=== PATIENT | male | born 1950 | race Caucasian/White ===

== ENCOUNTER 2021-02-10 10:33 | Outpatient (REF) | payer MEDICARE, SELFPAY ==
[2021-02-10 10:36] LABS: MANUAL DIFF FLAG NO
[2021-02-10 10:44] LABS: Basophils Absolute Auto 0.1 X10*3/uL (0.0-0.2); Basophils Percent Auto 0.8 % (0-2); Eosinophils Absolute Auto 0.2 X10*3/uL (0.0-0.4); Eosinophils Percent Auto 2.9 % (0-4); Hematocrit 46.3 % (42.0-52.0); Hemoglobin 16.1 g/dl (14.0-18.0); Imm Gran Abs Auto 0.04 X10*3/uL (0.00-0.03); Imm Gran Pct Auto 0.7 % (0.0-0.4); Lymphocytes Absolute Auto 1.6 X10*3/uL (1.2-4.9); Lymphocytes Percent Auto 27.3 % (20-40); Mean Corpuscular HGB Conc 34.8 g/dl (31.0-36.0); Mean Corpuscular Hemoglobin 32.1 pg (27.0-33.0); Mean Corpuscular Volume 92.4 fL (80.0-98.0); Mean Platelet Volume 10.6 fL (9.4-12.4); Monocytes Absolute Auto 0.7 X10*3/uL (0.1-1.2); Monocytes Percent Auto 11.6 % (2-11); Neutrophils Absolute Auto 3.4 x10*3/uL (2.0-8.3); Neutrophils Percent Auto 56.7 % (45-73); Platelet Count 193 X10*3/uL (160-400); Red Blood Count 5.01 X10*6/uL (4.60-5.80); Red Cell Distribution Width 12.9 % (11.0-16.0); White Blood Count 5.9 X10*3/uL (4.8-10.8)
[2021-02-10 10:55] LABS: Appearance Urine CLEAR; Color Urine YELLOW; Glucose Urine UA NEG (NEG); Leukocyte Esterase Urine NEG (NEG); Nitrite Urine NEG (NEG); Specific Gravity - Urine >= 1.030 (1.005-1.025); Urine Blood NEG (NEG); Urine Ketones NEG (NEG); Urine Protein NEG (NEG-TRACE)
[2021-02-10 10:59] LABS: Alanine Aminotransferase 27 U/L (0-40); Albumin Level 4.4 g/dL (3.5-5.0); Alkaline Phosphatase 66 U/L (39-117); Anion Gap 12 (12-20); Aspartate Amino Transferase 21 U/L (5-37); Bilirubin Total 1.7 mg/dL (0.0-1.0); Blood Urea Nitrogen 26 mg/dL (9-16); Calcium 9.5 mg/dL (8.4-10.2); Carbon Dioxide 27 mmol/L (22-29); Chloride 103 mmol/L (96-108); Cholesterol 203 mg/dL; Estimated Glomerular Filt Rate > 60; Glucose Fasting 101 mg/dL (60-99); HDL Cholesterol 60 mg/dL; LDL Cholesterol Calculated 126 mg/dl; Potassium 4.4 mmol/L (3.3-5.1); Sodium 138 mmol/L (135-145); Total Protein 6.7 g/dL (6.5-8.0); Triglycerides 87 mg/dL
[2021-02-10 11:08] LABS: Estimated Average Glucose 105 mg/dL; Hemoglobin A1c % 5.3 %
[2021-02-10 11:16] LABS: Creatinine Urine 232.14 mg/dL; Microalbum/Creatinine Ratio Ur 3.8 ug/mg cr
[2021-02-10 13:04] LABS: Reflex LDLD? No
== END 2021-02-10 10:34 | disposition home or self-care (01) ==
LOC: HO.LNP 10:33
PROVIDERS: PCP Internal Medicine; Visit Provider Internal Medicine
DX: Z12.5 Encounter for screening for malignant neoplasm of prostate (principal); I10 Essential (primary) hypertension; R73.03 Prediabetes; N40.0 Benign prostatic hyperplasia without lower urinary tract symptoms; D72.829 Elevated white blood cell count, unspecified
CPT/HCPCS: 80053; 80061; 81003; 82043; 83036; 84153; 85025

== ENCOUNTER 2021-03-20 10:25 | Outpatient (REF) | payer MEDICARE, SELFPAY ==
[2021-03-20 11:09] LABS: Blood Urea Nitrogen 20 mg/dL (9-16); Estimated Glomerular Filt Rate > 60
== END 2021-03-20 10:26 | disposition home or self-care (01) ==
LOC: HO.LNP 10:25
PROVIDERS: Visit Provider Internal Medicine
DX: I10 Essential (primary) hypertension (principal)
CPT/HCPCS: 82565; 84520

== ENCOUNTER → 2021-11-12 09:50 | Outpatient (BNVA) | payer MEDICARE, SELFPAY | PROVIDERS: PCP Internal Medicine; Referring Provider Internal Medicine; Visit Provider Internal Medicine | DX: I48.0 Paroxysmal atrial fibrillation (principal); I10 Essential (primary) hypertension; G47.33 Obstructive sleep apnea (adult) (pediatric) | CPT/HCPCS: 93005; 99202 ==

== ENCOUNTER → 2021-12-04 09:17 | Outpatient (REF) | payer MEDICARE, SELFPAY ==
--- NOTE | 2021-12-04 09:20 | HM_ITS ---
* Total monitoring time 4 days and 23 hours. * Underlying rhythm is sinus. Average rate 66/Min. Range 41 to 133/Min. About 38% the time, rate less than 60/Min. * Rare PVCs with a burden of less than 1%. * Episode of idioventricular rhythm during sleep hours. 22 beats. * Very rare supraventricular ectopy. * No clear patient symptoms documented. MTDD
--- NOTE | 2021-12-04 09:20 | CA_ITS ---
Transthoracic Echocardiogram Patient (Last, First, Middle): Darinel Gomez M Gender: Male Date of : 1950 Age: 71 Procedure Date: 12/04/2021 Procedure Type: Transthoracic Echocardiogram Location: OP Height: 182.88 cm Weight: 96.62 kg BSA: 2.19 m2 Heart Rate: bpm BP: 110 / 70 mmHg Inspector Type: TO Referring MD: Parminder Farias MD Symptoms: I48.0 - Paroxysmal atrial fibrillation Study Quality: Fair ECG Rhythm: Sinus Conclusions: - The left ventricular systolic function is normal. The calculated ejection fraction is 64% by biplane method. - There is moderate septal asymmetric hypertrophy. - There is mild calcification of the aortic valve. - There is mild mitral annular calcification. Findings Left Ventricle Normal left ventricular cavity size. There is mildly increased left ventricular wall thickness. The left ventricular systolic function is normal. The calculated ejection fraction is 64% by biplane method. There is no evidence of regional wall motion abnormalities. Diastolic function is normal for age. There is moderate septal asymmetric hypertrophy. Right Ventricle Normal right ventricular cavity size and systolic function. Atria The left atrium is moderately dilated. The right atrium is normal in size. Aortic Valve There is a normal trileaflet aortic valve. There is mild calcification of the aortic valve. There is no aortic valve stenosis. There is no aortic valve regurgitation. Mitral Valve The mitral valve appears normal. There is mild mitral annular calcification. There is trace mitral valve regurgitation. There is no mitral valve stenosis. Pulmonic Valve The pulmonic valve is likely normal. Tricuspid Valve Normal tricuspid valve structure. There is trace tricuspid valve regurgitation. There is no evidence of pulmonary hypertension. Great Vessels The aortic annulus, sinuses of valsalva, and asc aorta are normal in size. Venous The inferior vena cava is normal in size and collapses greater than 50% with inspiration. Pericardium/Pleural There is no evidence of pericardial effusion. Prior Study Comparison No prior study available for comparison. Measurements 2D Linear Measurements IVSd: 1.41 0.6-0.9/0.6-1.0 cm LVIDd: 4.78 3.9-5.3/4.2-5.9 cm LVIDd Index: 2.18 2.4-3.2/2.2-3.1 cm/m2 LVIDs: 2.77 2.0-3.6 cm LVPWd: 1.13 0.7-1.1 cm LA Diam: 4.50 2.7-3.8/3.0-4.0 cm LAIDs Index: 2.05 1.5-2.3 cm/m2 LV Mass: 294.33 67-162/88-224 g LV Mass Index: 134.40 43-95/49-115 g/m2 LVOT Diam: 2.20 3.0+(-)1.3 cm 2D Systolic Function EF 4C: 57.60 >55% EF 2C: 68.30 >55% EF BiP: 64.00 >55% Mitral Valve MV Pk E: 0.63 MV PK A: 0.56 MV Decel Time: 218.00 E/A: 1.10 E'Lateral: 10.30 E'Medial: 6.31 E/E' Med: 10.00 E/E' Lat: 6.20 PHT: 64.00 MVA PHT: 3.44 Decel Bryan: 2.91 Aortic Valve AoV Pk Ulisses: 1.38 AoV Mn Ulisses: 1.04 AoV VTI: 0.35 AoV Pk Grad: 8.00 Aov Mn Grad: 5.00 BALTAZAR Cont.VTI: 3.13 LVOT LVOT Pk Ulisses: 1.12 LVOT Mn Ulisses: 0.78 LVOT VTI: 0.29 LVOT Pk Grad: 5.00 LVOT Mn Grad: 3.00 LVOT Diam: 2.20 LVOT Area: 3.80 Diastolic Function MV Pk E: 0.63 MV Pk A: 0.56 E/A: 1.10 E'Medial: 6.31 E/E' Med: 10.00 E' Laterial: 10.30 E/E' Lat: 6.20 Right Ventricle TAPSE (mm): 26.90 TVS' Ulisses: 11.70 Tricuspid Valve TR Pk Ulisses: 2.04 TR Pk Grad: 17.00 RA Press: 3.00 RVSP: 20.00 Great Vessels Aorta Sinus of Valsalva: 3.28 2.0-3.[address] Ridge: 2.80 1.7-3.4 cm Ao Asc: 3.90 2.1-3.4 cm Updated in Other Vendor System with Status of Final Parminder Farias MD electronically signed on 12/05/2021 2:12:01 PM with status of Final
== END ==
LOC: HO.CARD 09:17
PROVIDERS: Visit Provider Internal Medicine
DX: I48.0 Paroxysmal atrial fibrillation (principal)
CPT/HCPCS: 93242; 93306

== ENCOUNTER → 2022-01-01 08:55 | Outpatient (BNVA) | payer MEDICARE, SELFPAY | PROVIDERS: PCP Internal Medicine; Referring Provider Internal Medicine; Visit Provider Internal Medicine | DX: I48.0 Paroxysmal atrial fibrillation (principal); I10 Essential (primary) hypertension; G47.33 Obstructive sleep apnea (adult) (pediatric); G40.209 Localization-related (focal) (partial) symptomatic epilepsy and epileptic syndromes with complex partial seizures, not intractable, without status epilepticus | CPT/HCPCS: 99212 ==

== ENCOUNTER 2022-02-13 11:09 | Outpatient (REF) | payer MEDICARE, SELFPAY ==
[2022-02-13 11:15] LABS: MANUAL DIFF FLAG NO
[2022-02-13 12:31] LABS: Appearance Urine Clear; Color Urine Dark Yellow; Glucose Urine UA Negative (Negative); Leukocyte Esterase Urine Negative (Negative); Nitrite Urine Negative (Negative); PH 5.5 (5.0-9.0); Urine Blood Negative (Negative); Urine Ketones Negative (Negative); Urine Protein Negative (Neg-Trace)
[2022-02-13 12:37] LABS: Bacteria Urine None Seen (None Seen); Hyaline Casts Urine 0-2 /LPF (0-2); RBC Urine 0-2 /HPF (0-2); Squamous Epithelial Cell Urine 0-2 /HPF (0-2); WBC Urine 0-5 /HPF (0-5)
[2022-02-13 12:45] LABS: Basophils Percent Auto 0.5 % (0-2); Eosinophils Absolute Auto 0.2 X10*3/uL (0.0-0.4); Eosinophils Percent Auto 3.4 % (0-4); Hematocrit 44.5 % (42.0-52.0); Hemoglobin 15.7 g/dl (14.0-18.0); Imm Gran Abs Auto 0.03 X10*3/uL (0.00-0.03); Imm Gran Pct Auto 0.5 % (0.0-0.4); Lymphocytes Absolute Auto 1.6 X10*3/uL (1.2-4.9); Lymphocytes Percent Auto 25.2 % (20-40); Mean Corpuscular HGB Conc 35.3 g/dl (31.0-36.0); Mean Corpuscular Hemoglobin 32.3 pg (27.0-33.0); Mean Corpuscular Volume 91.6 fL (80.0-98.0); Mean Platelet Volume 11.4 fL (9.4-12.4); Monocytes Absolute Auto 0.8 X10*3/uL (0.1-1.2); Monocytes Percent Auto 13.1 % (2-11); Neutrophils Absolute Auto 3.5 x10*3/uL (2.0-8.3); Neutrophils Percent Auto 57.3 % (45-73); Platelet Count 170 X10*3/uL (160-400); Red Blood Count 4.86 X10*6/uL (4.60-5.80); Red Cell Distribution Width 12.6 % (11.0-16.0); White Blood Count 6.2 X10*3/uL (4.8-10.8)
[2022-02-13 13:14] LABS: Estimated Average Glucose 103 mg/dL; Hemoglobin A1c % 5.2 %
[2022-02-13 13:35] LABS: Creatinine Urine 231.66 mg/dL; Microalbum/Creatinine Ratio Ur 5.1 ug/mg cr
[2022-02-13 14:31] LABS: Alanine Aminotransferase 28 U/L (0-40); Albumin Level 4.4 g/dL (3.5-5.0); Alkaline Phosphatase 71 U/L (39-117); Anion Gap 12 (12-20); Aspartate Amino Transferase 22 U/L (5-37); Bilirubin Total 1.3 mg/dL (0.0-1.0); Blood Urea Nitrogen 18 mg/dL (9-16); Calcium 9.4 mg/dL (8.4-10.2); Carbon Dioxide 27 mmol/L (22-29); Chloride 101 mmol/L (96-108); Cholesterol 187 mg/dL; Estimated Glomerular Filt Rate > 60; Glucose Fasting 98 mg/dL (60-99); HDL Cholesterol 58 mg/dL; LDL Cholesterol Calculated 118 mg/dl; PSA,Total (Free>4and<10) 0.61 ng/mL (0.00-4.00); Potassium 3.8 mmol/L (3.3-5.1); Sodium 136 mmol/L (135-145); Total Protein 6.4 g/dL (6.5-8.0); Triglycerides 56 mg/dL
== END 2022-02-13 11:10 | disposition home or self-care (01) ==
LOC: HO.LNP 11:09
PROVIDERS: Visit Provider Internal Medicine
DX: Z12.5 Encounter for screening for malignant neoplasm of prostate (principal); R73.03 Prediabetes; I10 Essential (primary) hypertension; N40.0 Benign prostatic hyperplasia without lower urinary tract symptoms; D72.829 Elevated white blood cell count, unspecified
CPT/HCPCS: 80053; 80061; 81001; 82043; 83036; 84153; 85025

== ENCOUNTER 2022-05-11 06:43 | Outpatient (REF) | payer MEDICARE, SELFPAY | END 2022-05-11 06:44 | disposition home or self-care (01) | LOC: HO.LAB 06:43 | PROVIDERS: PCP Internal Medicine; Visit Provider Psychiatry & Neurology Neurology | DX: G40.109 Localization-related (focal) (partial) symptomatic epilepsy and epileptic syndromes with simple partial seizures, not intractable, without status epilepticus (principal); Z79.899 Other long term (current) drug therapy | CPT/HCPCS: 36415; 80177 ==

== ENCOUNTER 2022-07-16 | Outpatient (REF) | payer MEDICARE, SELFPAY ==
[2022-07-16 16:29] LABS: MANUAL DIFF FLAG NO
[2022-07-16 16:32] LABS: Basophils Absolute Auto 0.1 X10*3/uL (0.0-0.2); Eosinophils Absolute Auto 0.1 X10*3/uL (0.0-0.4); Eosinophils Percent Auto 2.8 % (0-4); Hematocrit 44.1 % (42.0-52.0); Imm Gran Abs Auto 0.02 X10*3/uL (0.00-0.03); Imm Gran Pct Auto 0.4 % (0.0-0.4); Lymphocytes Absolute Auto 1.6 X10*3/uL (1.2-4.9); Lymphocytes Percent Auto 30.9 % (20-40); Mean Corpuscular Hemoglobin 31.3 pg (27.0-33.0); Mean Corpuscular Volume 91.9 fL (80.0-98.0); Monocytes Absolute Auto 0.6 X10*3/uL (0.1-1.2); Monocytes Percent Auto 11.8 % (2-11); Neutrophils Absolute Auto 2.7 x10*3/uL (2.0-8.3); Neutrophils Percent Auto 53.1 % (45-73); Platelet Count 161 X10*3/uL (160-400); Red Cell Distribution Width 12.8 % (11.0-16.0); White Blood Count 5.1 X10*3/uL (4.8-10.8)
[2022-07-16 16:43] LABS: Anion Gap 12 (12-20); Carbon Dioxide 25 mmol/L (22-29); Chloride 108 mmol/L (96-108); Potassium 4.3 mmol/L (3.3-5.1); Sodium 141 mmol/L (135-145)
== END 2022-07-16 00:01 | disposition home or self-care (01) ==
LOC: HO.LAB
PROVIDERS: Visit Provider Internal Medicine
DX: Z01.818 Encounter for other preprocedural examination (principal)
CPT/HCPCS: 36415; 80051; 85025

== ENCOUNTER 2022-11-12 12:48 | Outpatient (REF) | payer MEDICARE, SELFPAY ==
[2022-11-16 16:08] LABS: Levetiracetam Keppra 23.1 mcg/mL (6.0-46.0)
== END 2022-11-12 12:49 | disposition home or self-care (01) ==
LOC: HO.LNP 12:48
PROVIDERS: Visit Provider Internal Medicine
DX: G40.209 Localization-related (focal) (partial) symptomatic epilepsy and epileptic syndromes with complex partial seizures, not intractable, without status epilepticus (principal); Z79.899 Other long term (current) drug therapy
CPT/HCPCS: 80177

== ENCOUNTER 2023-01-11 08:57 | Outpatient (AMB) | payer MEDICARE, SELFPAY ==
--- NOTE | 2023-01-11 08:59 | A.OFFVIS_ITS ---
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 No atrial fibrillation issues. Maintained on a small dose of beta-blockers and also on anticoagulation. Otherwise, he has a history of complex partial seizure. He states that he had one further seizure and after that had to go to [facility] ER and it seems he might have had rib fractures. However, no major injuries otherwise. Him being on anticoagulation is hence a concern. 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 [facility] Medical History (Updated 01/01/22 @ 09:35 by Parminder Farias MD) Complex partial seizure Essential hypertension EVER (obstructive sleep apnea) Surgical History No pertinent past surgical history Family History Father No problems noted. Mother No problems noted. Social History Patient Tobacco Use Status: Never used Tobacco Review of Systems Const Denies weakness ENT Denies dizziness Card Denies chest pain, Denies chest pain with activity, Denies syncope, Denies rapid heart rate, Denies pedal edema, Denies edema, Denies leg edema, Denies lightheadedness, Denies palpitations, Denies dyspnea, Denies dyspnea on exertion and Denies orthopnea Resp Denies cough, Denies dyspnea and Denies dyspnea on exertion GI Denies hematochezia and Denies change in stool character Musc Denies abnormal gait, Denies muscle cramps, Denies muscle weakness, Denies numbness, Denies radiating pain into limb and Denies tingling Neuro Denies abnormal gait, Denies dizziness, Denies syncope, Denies numbness, Denies tingling and Denies weakness Endo Denies palpitations Physical Exam Vital Signs: Last Vital Signs Pulse 54 01/11/23 09:00 BP 116/70 01/11/23 09:00 BMI result Body Mass Index 29.6 Const General: comfortable and no acute distress Orientation/consciousness: patient oriented x3 HEENT Other: Unremarkable Head: Yes normal to inspection Neck Neck: Yes normal visual inspection Chest Chest palpation & inspection: normal inspection of the chest Resp Auscultation: clear to auscultation bilaterally Cardio Palpation: normal PMI Heart sounds: S1 normal heart sound present, S2 normal heart sound present, no gallops, no murmurs and no rubs GI Palpation (GI): Soft to palpation Back/Spine/Pelvis Other: unremarkable Skin General skin exam: no rashes or lesions noted Neuro General: patient oriented x3 Extrem General: Yes normal to inspection Psych Mental Status: mental status grossly normal Office Procedures EKG Details: EKG with sinus bradycardia at 54/Min; incomplete right bundle-branch block pattern; RI prolongation to 206 millisecond; [place]. [id number], Complete Assessment & Plan Assessment & Plan (1) PAF (paroxysmal atrial fibrillation): Code(s): I48.0 - Paroxysmal atrial fibrillation Plan: Continue low-dose beta-blockers. Continue Eliquis for the foreseeable future. Due to history of seizures and propensity for injuries, discussed about Watchman device. Gave him brochure to review. If he is interested, we will send him to EP. Post Watchman, he can just take aspirin which will be preferable if he gets recurrent seizures/injuries. (2) Essential hypertension: Code(s): I10 - Essential (primary) hypertension Plan: Stable. No changes. Previously on valsartan but not anymore. (3) EVER (obstructive sleep apnea): Code(s): G47.33 - Obstructive sleep apnea (adult) (pediatric) Plan: On CPAP. (4) Complex partial seizure: Code(s): G40.209 - Localization-related (focal) (partial) symptomatic epilepsy and epileptic syndromes with complex partial seizures, not intractable, without status epilepticus Plan: Remote history of cavernous angioma resection from brain many years ago. He still gets seizures intermittently. Most recently, seizure leading to emergency room visits/rib fractures. Hence we discussed about Watchman device as an alternative and he will think about it. If interested, we will refer him to EP. Coding Level of Care Code Est Pt Level 4 (70952) Diagnoses PAF (paroxysmal atrial fibrillation) I48.0 Essential hypertension I10 EVER (obstructive sleep apnea) G47.33 Complex partial seizure G40.209 CPT Codes EKG - CPT: 89229-[id number], Complete ([id number])
[2023-01-11 09:00] VITALS: BP 116/70; PULSE 54; BMI 29.6
== END 2023-01-11 09:18 | disposition home or self-care (01) ==
PROVIDERS: Visit Provider Internal Medicine
DX: I48.0 Paroxysmal atrial fibrillation (principal); I10 Essential (primary) hypertension; G47.33 Obstructive sleep apnea (adult) (pediatric); G40.209 Localization-related (focal) (partial) symptomatic epilepsy and epileptic syndromes with complex partial seizures, not intractable, without status epilepticus
CPT/HCPCS: 93010; 99214

== ENCOUNTER → 2023-01-11 08:57 | Outpatient (BNVA) | payer MEDICARE, SELFPAY | PROVIDERS: Visit Provider Internal Medicine | DX: I48.0 Paroxysmal atrial fibrillation (principal); I10 Essential (primary) hypertension; G47.33 Obstructive sleep apnea (adult) (pediatric); G40.209 Localization-related (focal) (partial) symptomatic epilepsy and epileptic syndromes with complex partial seizures, not intractable, without status epilepticus; Z79.01 Long term (current) use of anticoagulants | CPT/HCPCS: 93005; 99212 ==

== ENCOUNTER 2023-02-18 10:43 | Outpatient (REF) | payer MEDICARE, SELFPAY ==
[2023-02-18 10:47] LABS: MANUAL DIFF FLAG NO
[2023-02-18 11:09] LABS: Appearance Urine Clear; Color Urine Yellow; Glucose Urine UA Negative (Negative); Leukocyte Esterase Urine Negative (Negative); Nitrite Urine Negative (Negative); PH 5.5 (5.0-9.0); Specific Gravity - Urine 1.025 (1.005-1.025); Urine Blood Negative (Negative); Urine Ketones Negative (Negative); Urine Protein Negative (Neg-Trace)
[2023-02-18 11:18] LABS: Bacteria Urine None Seen (None Seen); Basophils Absolute Auto 0.1 X10*3/uL (0.0-0.2); Basophils Percent Auto 0.8 % (0-2); Eosinophils Absolute Auto 0.2 X10*3/uL (0.0-0.4); Eosinophils Percent Auto 3.1 % (0-4); Hemoglobin 15.4 g/dl (14.0-18.0); Hyaline Casts Urine 0-2 /LPF (0-2); Imm Gran Abs Auto 0.02 X10*3/uL (0.00-0.03); Imm Gran Pct Auto 0.3 % (0.0-0.4); Lymphocytes Percent Auto 33.6 % (20-40); Mean Corpuscular HGB Conc 34.2 g/dl (31.0-36.0); Mean Corpuscular Volume 90.5 fL (80.0-98.0); Mean Platelet Volume 10.7 fL (9.4-12.4); Monocytes Absolute Auto 0.8 X10*3/uL (0.1-1.2); Monocytes Percent Auto 13.4 % (2-11); Neutrophils Absolute Auto 2.9 x10*3/uL (2.0-8.3); Neutrophils Percent Auto 48.8 % (45-73); Platelet Count 187 X10*3/uL (160-400); RBC Urine 0-2 /HPF (0-2); Red Blood Count 4.97 X10*6/uL (4.60-5.80); Red Cell Distribution Width 12.3 % (11.0-16.0); Squamous Epithelial Cell Urine 0-2 /HPF (0-2); WBC Urine 0-5 /HPF (0-5); White Blood Count 5.9 X10*3/uL (4.8-10.8)
[2023-02-18 11:25] LABS: Alanine Aminotransferase 21 U/L (0-40); Albumin Level 4.4 g/dL (3.5-5.0); Alkaline Phosphatase 82 U/L (39-117); Anion Gap 11 (12-20); Aspartate Amino Transferase 22 U/L (5-37); Bilirubin Total 1.5 mg/dL (0.0-1.0); Blood Urea Nitrogen 21 mg/dL (9-16); Calcium 9.5 mg/dL (8.4-10.2); Carbon Dioxide 25 mmol/L (22-29); Chloride 107 mmol/L (96-108); Cholesterol 189 mg/dL (<200); Estimated Glomerular Filt Rate > 60; Glucose Fasting 97 mg/dL (60-99); HDL Cholesterol 61 mg/dL (>40); LDL Cholesterol Calculated 116 mg/dL (<100); Sodium 139 mmol/L (135-145); Total Protein 6.8 g/dL (6.5-8.0); Triglycerides 64 mg/dL (<150)
[2023-02-18 11:38] LABS: PSA,Total (Free>4and<10) 1.07 ng/mL (0.00-4.00)
== END 2023-02-18 10:44 | disposition home or self-care (01) ==
LOC: HO.LNP 10:43
PROVIDERS: Visit Provider Internal Medicine
DX: R73.09 Other abnormal glucose (principal); N40.0 Benign prostatic hyperplasia without lower urinary tract symptoms; I10 Essential (primary) hypertension; Z12.5 Encounter for screening for malignant neoplasm of prostate
CPT/HCPCS: 80053; 80061; 81001; 84153; 85025

== ENCOUNTER 2023-03-19 09:18 | Outpatient (AMB) | payer MEDICARE, SELFPAY ==
--- NOTE | 2023-03-19 09:25 | MHC.OFFVIS ---
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 Required: No Accompanied by: Spouse Allergies lisinopril Adverse Reaction (Unknown, Verified 03/19/23 09:28) Cough bananas Adverse Reaction (Unknown, Uncoded 03/19/23 09:28) GI upset Medication List - Last Reconciled 03/19/23 by Ev Olivares NP-C apixaban (Eliquis) 5 mg PO BID 90 days lamotrigine 50 mg PO BID levetiracetam 750 mg PO BID metoprolol succinate ER (Toprol XL) 25 mg PO DAILY multivitamin 1 tab PO DAILY HPI follow up/ irregular heart rate HPI Details Darinel is a 72-year-old male with past medical history of hypertension, obstructive sleep apnea with CPAP use, paroxysmal atrial fibrillation, seizures who presents for follow-up. Today he reports he has been having increasing heart palpitations. He says that for the last 3-4 weeks he notices that with any physical activities heart rate goes up into the 80s to 90s. He can feel his heart beating. He has not had any documented heart rates over 100. He says this is different for him as he previously did not feel the heartbeats. He is noticing some mild shortness of breath with activity. No shortness of breath at rest, PND, orthopnea or edema. No chest discomfort at rest or with activity. No lightheadedness, presyncope, syncope, falls. Taking all meds as directed. is present. [facility] Medical History Complex partial seizure Essential hypertension EVER (obstructive sleep apnea) Surgical History No pertinent past surgical history Family History Father No problems noted. Mother No problems noted. Social History Patient Tobacco Use Status: Never used Tobacco Review of Systems Const All systems reviewed & are unremarkable except as noted in HPI and below Denies weakness ENT Denies dizziness Card Denies chest pain, Denies chest pain with activity, Denies syncope, Reports rapid heart rate, Denies pedal edema, Denies edema, Denies leg edema, Denies lightheadedness, Denies palpitations, Reports dyspnea, Denies dyspnea on exertion and Denies orthopnea Resp Denies cough, Reports dyspnea and Denies dyspnea on exertion GI Denies hematochezia and Denies change in stool character Musc Denies abnormal gait, Denies muscle cramps, Denies muscle weakness, Denies numbness, Denies radiating pain into limb and Denies tingling Neuro Denies abnormal gait, Denies dizziness, Denies syncope, Denies numbness, Denies tingling and Denies weakness Endo Denies palpitations Physical Exam Vital Signs: BMI result Body Mass Index 29.7 Const General: cooperative, healthy appearing, comfortable and no acute distress Orientation/consciousness: patient oriented x3 Neck Neck: Yes normal visual inspection Resp Effort & Inspection: normal respiratory effort Auscultation: clear to auscultation bilaterally, no crackles, no rales, no rhonchi and no wheezes Cardio Jugular venous distension: no JVD Rate: regular rate Rhythm: regular rhythm Heart sounds: S1 normal heart sound present, S2 normal heart sound present, no murmurs and no rubs Neuro General: patient oriented x3 Extrem General: Yes normal to inspection, No no pedal edema and No calf tenderness Psych Appearance: grossly normal Mental Status: mental status grossly normal Speech and movement: Normal speech and movement present Office Procedures EKG Details: Today, read by me, normal sinus rhythm, incomplete right bundle branch block, rate 61, QTC 422 milliseconds [id number], Complete Assessment & Plan Assessment & Plan (1) PAF (paroxysmal atrial fibrillation): Code(s): I48.0 - Paroxysmal atrial fibrillation Plan: History of paroxysmal atrial fibrillation. On low-dose metoprolol for heart rate control. He is on Eliquis for anticoagulation. He has history of seizures from a prior history of cavernous angioma of the brain. On last visit Watchman device was discussed. At this time he continues on the Eliquis without bleeding issues or recurrent seizures or falls. He does state he has been having increasing heart palpitations. States it feels like his heart is beating fast with any physical activity. No documented heart rates over 100. In the past he did not feel his heart beating like this. I used a sat monitored ambulated him in our hallways. Heart rate initially 66 and valeri to 80 with walking. EKG done today showing sinus rhythm with incomplete right bundle branch block, rate 61. At this time will continue his metoprolol at current dose. Will check Holter monitor to evaluate his heart rate and rhythm. Plan to call him with results. Continue Eliquis without change. Will have him keep his scheduled follow-up for December, will arrange sooner appointment if needed. (2) Essential hypertension: Code(s): I10 - Essential (primary) hypertension Plan: Well controlled at present. No med changes made. (3) EVER (obstructive sleep apnea): Code(s): G47.33 - Obstructive sleep apnea (adult) (pediatric) Plan: Reports nightly compliance with CPAP mask (4) Complex partial seizure: Code(s): G40.209 - Localization-related (focal) (partial) symptomatic epilepsy and epileptic syndromes with complex partial seizures, not intractable, without status epilepticus Plan: As above. Follows with Neurology Plan Time spent on chart review, documentation, interview and assessment Orders: Orders ECG 3 day holter monitor Today I48.0 - Paroxysmal atrial fibrillation Coding Level of Care Code Est Pt Level 4 (38643) Diagnoses PAF (paroxysmal atrial fibrillation) I48.0 Essential hypertension I10 EVER (obstructive sleep apnea) G47.33 Complex partial seizure G40.209 CPT Codes EKG - CPT: 22938-[id number], Complete ([id number]) Time Spent (min) 28
[2023-03-19 09:27] VITALS: BP 138/80; PULSE 61; BMI 29.7
== END 2023-03-19 09:50 | disposition home or self-care (01) ==
PROVIDERS: PCP Internal Medicine; Visit Provider Nurse Practitioner Family
DX: I48.0 Paroxysmal atrial fibrillation (principal); I10 Essential (primary) hypertension; G47.33 Obstructive sleep apnea (adult) (pediatric); G40.209 Localization-related (focal) (partial) symptomatic epilepsy and epileptic syndromes with complex partial seizures, not intractable, without status epilepticus
CPT/HCPCS: 93010; 99214

== ENCOUNTER → 2023-03-19 09:18 | Outpatient (BNVA) | payer MEDICARE, SELFPAY | PROVIDERS: PCP Internal Medicine; Visit Provider Nurse Practitioner Family | DX: I48.0 Paroxysmal atrial fibrillation (principal); I10 Essential (primary) hypertension; G47.33 Obstructive sleep apnea (adult) (pediatric); G40.209 Localization-related (focal) (partial) symptomatic epilepsy and epileptic syndromes with complex partial seizures, not intractable, without status epilepticus | CPT/HCPCS: 93005; 99212 ==

== ENCOUNTER → 2023-03-31 11:18 | Outpatient (REF) | payer MEDICARE, SELFPAY ==
--- NOTE | 2023-03-31 11:22 | HM_ITS ---
Conclusion: 1. Patient was monitored for total period of 3 days and 2 hours 2. Baseline was normal sinus rhythm with average heart of 61 beats per minute with frequent sinus bradycardia, 52% of time heart rate below 60 beats per minute 3. No significant pauses noted 4. Occasional PVCs noted with total burden of 0.7% 5. Patient reported to events, 1 correlating with PVCs and 1 with normal sinus rhythm MTDD
== END ==
LOC: HO.CARD 11:18
PROVIDERS: PCP Internal Medicine; Visit Provider Nurse Practitioner Family
DX: I48.0 Paroxysmal atrial fibrillation (principal)
CPT/HCPCS: 93242

== ENCOUNTER → 2023-03-31 11:22 | Outpatient (BNV) | payer MEDICARE, SELFPAY | PROVIDERS: PCP Internal Medicine; Visit Provider Internal Medicine Cardiovascular Disease | DX: R00.1 Bradycardia, unspecified (principal) | CPT/HCPCS: 93244 ==

== ENCOUNTER 2024-01-12 14:04 | Outpatient (AMB) | payer MEDICARE, SELFPAY ==
--- NOTE | 2024-01-12 14:08 | MHC.OFFVIS ---
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 He remains on beta-blockers as well as anticoagulation. Overall, he states he feels fine. No new episodes. Otherwise, he has complex partial seizures. He has had many seizures in the past and even had rib fractures but nothing in the last year or so. No major injuries recently. 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 Hence there is a concern for taking long-term anticoagulation. Watchman device was discussed last time in today he states he is willing to proceed. [facility] Medical History Complex partial seizure Essential hypertension EVER (obstructive sleep apnea) Surgical History No pertinent past surgical history Family History Father No problems noted. Mother No problems noted. Social History (Updated 01/12/24 @ 14:14 by Rosalia Scruggs CMA) Alcohol intake: never Patient Tobacco Use Status: Never used Tobacco Review of Systems Const Denies chills, Denies fatigue, Denies fever(s), Denies weight gain and Denies weight loss ENT Denies dizziness Card Denies chest pain, Denies leg edema, Denies lightheadedness, Denies palpitations, Denies dyspnea on exertion, Denies orthopnea and Denies other Resp Denies cough and Denies dyspnea on exertion GI Denies hematochezia and Denies change in stool character Musc Denies abnormal gait, Denies muscle weakness, Denies numbness, Denies radiating pain into limb and Denies tingling Neuro Denies abnormal gait, Denies dizziness, Denies numbness and Denies tingling Endo Denies fatigue and Denies palpitations Physical Exam Vital Signs: Last Vital Signs Pulse 55 01/12/24 14:09 BP 126/70 01/12/24 14:09 BMI result Body Mass Index 27.6 Const General: comfortable and no acute distress Orientation/consciousness: patient oriented x3 HEENT Other: Unremarkable Head: Yes normal to inspection Neck Neck: Yes normal visual inspection Chest Chest palpation & inspection: normal inspection of the chest Resp Auscultation: clear to auscultation bilaterally Cardio Palpation: normal PMI Heart sounds: S1 normal heart sound present, S2 normal heart sound present, no gallops, no murmurs and no rubs GI Palpation (GI): Soft to palpation Back/Spine/Pelvis Other: unremarkable Skin General skin exam: no rashes or lesions noted Neuro General: patient oriented x3 Extrem General: Yes normal to inspection Psych Mental Status: mental status grossly normal Office Procedures EKG Details: EKG with underlying sinus bradycardia at 55/Min; HI prolongation to 212 milliseconds; [place]. [id number], Complete Assessment & Plan Assessment & Plan (1) PAF (paroxysmal atrial fibrillation): Code(s): I48.0 - Paroxysmal atrial fibrillation Category: Medical Plan: Continue beta-blockers. May remain on Eliquis for the time being. Due to history of seizures/propensity for injuries, discussed about Watchman device and he is willing to proceed. Refer him to [facility] for the same. (2) Essential hypertension: Code(s): I10 - Essential (primary) hypertension Category: Medical Plan: Stable. No changes. Previously on valsartan but not anymore. (3) EVER (obstructive sleep apnea): Code(s): G47.33 - Obstructive sleep apnea (adult) (pediatric) Category: Medical Plan: On CPAP. 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 He still gets seizures intermittently. Hence recommend Watchman device as above. Orders: Referrals Interventional Cardiology Referral I48.0 - Paroxysmal atrial fibrillation Coding Level of Care Code Est Pt Level 4 (97782) Diagnoses PAF (paroxysmal atrial fibrillation) I48.0 Essential hypertension I10 EVER (obstructive sleep apnea) G47.33 Complex partial seizure G40.209 CPT Codes EKG - CPT: 25700-Ytrjgtnlxpcphrvoo, Complete ([id number])
[2024-01-12 14:09] VITALS: BP 126/70; PULSE 55; BMI 27.6
== END 2024-01-12 14:31 | disposition home or self-care (01) ==
LOC: HO.HCS 14:05
PROVIDERS: PCP Internal Medicine; Visit Provider Internal Medicine
DX: I48.0 Paroxysmal atrial fibrillation (principal); I10 Essential (primary) hypertension; G47.33 Obstructive sleep apnea (adult) (pediatric); G40.209 Localization-related (focal) (partial) symptomatic epilepsy and epileptic syndromes with complex partial seizures, not intractable, without status epilepticus
CPT/HCPCS: 93010; 99214

== ENCOUNTER → 2024-01-12 14:04 | Outpatient (BNVA) | payer MEDICARE, SELFPAY | PROVIDERS: PCP Internal Medicine; Visit Provider Internal Medicine | DX: I48.0 Paroxysmal atrial fibrillation (principal); I10 Essential (primary) hypertension; G40.209 Localization-related (focal) (partial) symptomatic epilepsy and epileptic syndromes with complex partial seizures, not intractable, without status epilepticus; G47.33 Obstructive sleep apnea (adult) (pediatric) | CPT/HCPCS: 93005; 99212 ==

== ENCOUNTER 2024-03-23 11:37 | Outpatient (REF) | payer MEDICARE, SELFPAY ==
[2024-03-23 12:06] LABS: MANUAL DIFF FLAG NO
[2024-03-23 12:22] LABS: Appearance Urine Clear; Basophils Percent Auto 0.5 % (0-2); Color Urine Yellow; Eosinophils Absolute Auto 0.2 X10*3/uL (0.0-0.4); Eosinophils Percent Auto 4.1 % (0-4); Glucose Urine UA Negative (Negative); Hematocrit 44.7 % (42.0-52.0); Hemoglobin 15.5 g/dl (14.0-18.0); Imm Gran Abs Auto 0.02 X10*3/uL (0.00-0.03); Imm Gran Pct Auto 0.3 % (0.0-0.4); Leukocyte Esterase Urine Negative (Negative); Lymphocytes Percent Auto 34.2 % (20-40); Mean Corpuscular HGB Conc 34.7 g/dl (31.0-36.0); Mean Corpuscular Hemoglobin 32.5 pg (27.0-33.0); Mean Corpuscular Volume 93.7 fL (80.0-98.0); Mean Platelet Volume 10.7 fL (9.4-12.4); Monocytes Absolute Auto 0.7 X10*3/uL (0.1-1.2); Monocytes Percent Auto 12.5 % (2-11); Neutrophils Absolute Auto 2.8 x10*3/uL (2.0-8.3); Neutrophils Percent Auto 48.4 % (45-73); Nitrite Urine Negative (Negative); PH 5.5 (5.0-9.0); Platelet Count 182 X10*3/uL (160-400); Red Blood Count 4.77 X10*6/uL (4.60-5.80); Red Cell Distribution Width 12.5 % (11.0-16.0); Urine Blood Negative (Negative); Urine Ketones Negative (Negative); Urine Protein Negative (Neg-Trace); White Blood Count 5.8 X10*3/uL (4.8-10.8)
--- OUTSIDE RECORDS SUMMARY | 2024-03-23 12:33 | XMS_ITS ---
Author Organization Krishna Arroyo MD Address [address] [place], [place] [phone] Care Team Providers Care Product Analyst Name Role Phone Krishna Arroyo Primary Care Provider [phone] REASON FOR VISIT HDF MEDICATIONS Medication SIG (Take, Route, Frequency, Duration) Notes [...] capsule three time s a day Not-Taking IMMUNIZATIONS Vaccine Route Administration Date Status Comme nts Influenza High Dose IM Intramuscular 11/22/2023 Administer ed Encounters Encounter Location Date Provider Diagnosis Krishna Arroyo MD [address] [facility] [address] [place] [phone] 11/22/2023Ortega Arroyo Encounter for immunization Z23 ASSESSMENTS Encounter Date Diagnosis Assessment Notes Treatment Notes Treatment Clinical Notes 11/22/2023 Encounter for immunization (ICD-10 - Z23) PLAN OF TREATMENT Next Appt Details Provider Name:Krishna mccall, 03/30/2024 08:30:00 AM, [address] [place] [address], [address], [place], [place], [phone],
--- OUTSIDE RECORDS SUMMARY | 2024-03-23 12:33 | XMS_ITS ---
Author Organization Krishna Arroyo MD Address [address] [place], [place] [phone] Care Team Providers Care Quality Control Technician Name Role Phone Krishna Arroyo Primary Care Provider ALLERGIES Allergen (clinical drug ingredient) Drug/Non Drug Allergy documented on EMR Reaction Allergy Type Onset Date Status lisinopril Lisinopril cough Drug Allergy Activ e banana allergenic extract bananas (uncoded) GI Upset Allergy Active REASON FOR VISIT 6 month MEDICATIONS Medication SIG (Take, Route, Frequency, Duration) [...] capsule Ora lly Once a day Active VITAL SIGNS BMI 28.76 kg/m2 08/26/2023 Blood pressure systolic 104 mm Hg 08/26/19 24 Blood pressure diastolic 66 mm Hg 024 Height 73 in 08/26/2023 Weight 218 lbs 08/26/2023 Encounters Encounter Location Date Provider Diagnosis Krishna Arroyo MD [address] [facility] [address] [place], [place] [phone] 08/26/2023 Krishna Arroyo Atrial fibrillation I48.91 and Complex partial seizure disorder G40.209 ASSESSMENTS Encounter Date Diagnosis Assessment Notes Treatment Notes Treatment Clinical Notes 08/26/2023 Atrial fibrillation (ICD-10 - I48.91) is going to see cardiology in [facility] for watchman 08/26/2023 Complex partial seizure disorder (ICD-10 - G40.209) is doing well on meds., will continue current regiment PLAN OF TREATMENT Medication Medication Name Sig Start Date Stop Date Notes Eliquis 5 MG as directed Orally twice a day 08/29/2021 levETIRAcetam 750 MG 2 tabs Orally every 12 hrs Treatment Notes Assessment Notes Atrial fibrillation is going to see card iology in [facility] Complex partial seizure disorder is doin g well on meds., will continue current regiment Next Appt Details Provider Name:Krishna mccall, 03/30/2024 08:30:00 AM, [address] [facility] [address], [address], [place], [place], [phone], Progress Notes * Examination Category Sub-Category Detail Notes General Examination GENERAL APPEARANCE: alert, w ell hydrated, in no distress , male HEAD: normocephalic HEART: regular rate and rhy thm, no murmurs, rubs, gallops LUNGS: no wheezes, rales, r honchi, good air movement, clear to auscultation bilaterally SKIN: good turgor
--- OUTSIDE RECORDS SUMMARY | 2024-03-23 12:33 | XMS_ITS | Patient Health Record ---
Author Organization [facility] Address [address] [place] [address] Care Team Providers Care Distribution Center Assistant Name Role Phone Krishna Arroyo MD Primary Care Provider Jabier Johnson [phone] ALLERGIES Allergen (clinical drug ingredient) Drug/Non Drug Allergy documented on EMR Reaction Allergy Type Onset Date Status lisinopril Lisinopril cough Drug Allergy Activ e REASON FOR REFERRAL No Information MEDICATIONS Medication SIG (Take, Route, Frequency, Duration) Notes Start Date End Date Status Metoprolol Succinate ER 25 MG Oral for 90 Active lamoTRIgine 100 MG TAKE 1 TABLET TWICE A DAY Oral for 90 Active levETIRAcetam 750 MG Oral for 90 Active Multi Vitamin/Minerals Orally Active Eliquis 5 MG Oral for 90 Activ e Vitamin D3 2000 UNIT Orally Active SOCIAL HISTORY Sex Assigned At : Social History Observation Description Sex Assigned At Unknown PROBLEMS Problem Type ICD Code Onset Dates Problem Status W/U Status Risk SNOMED Code Notes Problem Colon cancer screening (Z12.11) Active confirmed Colon can cer screening (098466978) Problem Current use of care home anticoagulation (Z79.01) Active confirmed Long-term current use of anticoagulant (401658609) VITAL SIGNS Blood pressure diastolic 00 mm Hg 01/18/2024 Height 72 in 01/18/2024 Blood pressure systolic 00 mm Hg 01/18/2024 Weight 205 lbs 01/18/2024 BMI 27.80 kg/m2 01/18/2024 Encounters Encounter Location Date Provider Diagnosis [facility] [address] [place] [address] 01/18/2024 Jabier Moon Colon cancer screeni ng Z12.11 and Current use of intermediate frame tender anticoagulation Z79.01 ASSESSMENTS Encounter Date Diagnosis Assessment Notes Treatment Notes Treatment Clinical Notes 01/18/2024 Colon cancer screeni ng (ICD-10 - Z12.11) Stop the Eliquis for three days before the colonoscopy 01/18/2024 Current use of care home anticoagulation (ICD-10 - Z79.01) PLAN OF TREATMENT Future Test Test Name Order Date COLONOSCOPY 11/30/2013 COLONOSCOPY 01/18/2024 Next Appt Details Provider Name:Jabier Moon , 05/03/2024 11:40:00 AM, [address] [place] [address] , [place], [place], [phone], Insurance Providers Payer Name Payer Address Payer Phone Subscriber Number Group Number Insured Name Patient Relationship to Insured Coverage Start Date Coverage End Date MEDICARE OF [place] [address] [place] [address] [id number] DEBORAH MARCELO Self - patient is the insured [employer] CLAIMS [address] [place] [address] [id number] DEBORAH MARCELO Self - patient is the insured MEDICAL (GENERAL) HISTORY Medical History History ICD Code Negative colonoscopies in and 06-27-2008, except for int/ext hemorrhoids, hyperplastic polyps, sigmoid diiverticulosis Denies IL,DM,CVA,Lung disease,renal dise ase Non-Hodgkin's Lymphoma follo wed at [facility]-diagnosed in 2000--has never been treated Hypertension Sleep apnea- cpap machine Atrial fibrillation-Dr. Farias Complex partial seizure - Dr. Cantu She en [place] [facility] [place] colonoscopy in 01/2014 Surgical History Surgery Date(Month/Year) Neurosurgery for partial sim ple seizures--had a lesion in the right temporal lobe that was resected Tonsillectomy Hand surgery Carpal tunnel /bilateral
--- OUTSIDE RECORDS SUMMARY | 2024-03-23 12:33 | XMS_ITS ---
Author Organization Krishna Arroyo MD Address [address] [place], [place] [id number] Care Team Providers Care [employer] Consultant Name Role Phone Krishna Arroyo Primary Care Provider RESULTS Component Value Reference Range Notes Complete Blood Count Auto Di ff (Not yet reviewed by provider) Interpretation: Performing Lab:[facility], [address] [place] [phone] Notes/Report: White Blood Count 5.8 4.8-10.8 X10*3/uL [...] X10*3/uL NRBC Abs Auto 0.000 0.0-0.012 X10*3/uL REASON FOR VISIT yearly labs Encounters Encounter Location Date Provider Diagnosis Krishna Arroyo MD [address] [place] [address] Drive [address] [place], [place] [phone] 03/23/2024 Krishna Arroyo Prediabetes R73.09 ; Essential hypertension I10 ; Prostatism N40.0 and Leukocytosis, unspecified type D72.829 ASSESSMENTS Encounter Date Diagnosis Assessment Notes Treatment Notes Treatment Clinical Notes 03/23/2024 Prediabetes (ICD-10 - R73.09) 03/23/2024 Essential hypertension (ICD-10 - I10) 03/23/2024 Prostatism (ICD-10 - N40.0) 03/23/2024 Leukocytosis, unspecified type (ICD-10 - D72.829) PLAN OF TREATMENT Pending Test Test Name Order Date Complete Blood Count Auto Diff 5 Comprehensive [place]. Panel Fast 5 Lipid Panel 03/23/2024 PSA,Total (Free>4and<10) 03/23/2024 UA ClnCatch+Micro w/rflx Cult 03/23/2024 Next Appt Details Provider Name:Krishna mccall, 03/30/2024 08:30:00 AM, [address] [place] [address] Drive, [address], [place], [place], [phone],
--- OUTSIDE RECORDS SUMMARY | 2024-03-23 12:33 | XMS_ITS ---
Author Organization [facility] Address [address] [place] [address] Care Team Providers Care French Weaver Name Role Phone Krishna Arroyo MD Primary Care Provider Jabier Johnson [phone] ALLERGIES Allergen (clinical drug ingredient) Drug/Non Drug Allergy documented on EMR Reaction Allergy Type Onset Date Status lisinopril Lisinopril cough Drug Allergy Activ e REASON FOR VISIT Patient presents today for a colon screening MEDICATIONS Medication SIG (Take, Route, Frequency, Duration) Notes Start Date End Date Status Metoprolol Succinate ER 25 MG Oral for 90 Active levETIRAcetam 750 MG Oral for 90 Active lamoTRIgine 100 MG TAKE 1 TABLET TWICE A DAY Oral for 90 Active Multi Vitamin/Minerals Orally Active Eliquis 5 MG Oral for 90 Activ e Vitamin D3 2000 UNIT Orally Active PROBLEMS Problem Type ICD Code Onset Dates Problem Status W/U Status Risk SNOMED Code Notes Problem Colon cancer screening (Z12.11) Active confirmed Colon can cer screening (750265336) Problem Current use of senior living anticoagulation (Z79.01) Active confirmed Long-term current use of anticoagulant (798907469) VITAL SIGNS BMI 27.80 kg/m2 01/18/2024 Blood pressure systolic 00 mm Hg 01/18/20 24 Blood pressure diastolic 00 mm Hg 024 Height 72 in 01/18/2024 Weight 205 lbs 01/18/2024 Encounters Encounter Location Date Provider Diagnosis [facility] [address] [place] [address] 01/18/2024 Jabier Moon Colon cancer screeni ng Z12.11 and Current use of senior living anticoagulation Z79.01 ASSESSMENTS Encounter Date Diagnosis Assessment Notes Treatment Notes Treatment Clinical Notes 01/18/2024 Colon cancer screeni ng (ICD-10 - Z12.11) Stop the Eliquis for three days before the colonoscopy 01/18/2024 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 (ICD-10 - Z79.01) PLAN OF TREATMENT Treatment Notes Assessment Notes Colon cancer screening Stop the Eliquis for three days before the colonoscopy Future Test Test Name Order Date COLONOSCOPY 01/18/2024 Next Appt Details Follow Up: prn, Reason: Provider Name:Jabier Moon , 05/03/2024 11:40:00 AM, [address] [place] [address], [phone], Progress Notes * Examination Category Sub-Category Detail Notes General Examination GENERAL APPEARANCE: pleasant , well nourished, well developed, in no acute distress HEAD: EYES: sclera non-icteric EARS: NOSE: THROAT: NECK/THYROID: no cervical lymphade nopathy, neck supple HEART: S1, S2 normal CHEST: LUNGS: clear to auscultatio n bilaterally ABDOMEN: normal bowel sounds, no guarding or rigidity, no guarding or rigidity, no masses palpable, soft, nontender, nondistended NEUROLOGIC: alert and oriented SKIN: nonjaundiced, no spi armando angiomata EXTREMITIES: no edema PERIPHERAL PULSES: BACK: BREASTS: MUSCULOSKELETAL: MALE GENITOURINARY: LYMPH NODES: RECTAL EXAM: FEMALE GENITOURINARY: ORAL CAVITY: mucosa moist
--- OUTSIDE RECORDS SUMMARY | 2024-03-23 12:34 | XMS_ITS | Patient Health Record ---
Author Organization Krishna Arroyo MD Address [address] [place], [place] [phone] Care Team Providers Care Manager Hi Name Role Phone Krishna Arroyo Primary Care Provider ALLERGIES Allergen (clinical drug ingredient) Drug/Non Drug Allergy documented on EMR Reaction Allergy Type Onset Date Status lisinopril Lisinopril cough Drug Allergy Activ e banana allergenic extract bananas (uncoded) GI Upset Allergy Active RESULTS Component Value Reference Range Notes Complete Blood Count Auto Di ff (Not yet reviewed by provider) Interpretation: Performing Lab:[facility], [address] [phone] Notes/Report: White Blood Count 5.8 4.8-10.8 X10*3/uL [...] Abs Auto 0.000 0.0-0.012 X10*3/uL REASON FOR REFERRAL No Information MEDICATIONS Medication SIG (Take, Route, Frequency, Duration) Notes Start Date End Date Status Ibuprofen 800 MG 1 tablet Orally Thre e times a day for 30 day(s) 02/16/2011 Not-Taking Eliquis 5 MG as directed Orally twice a day 08/29/2021 Active lamoTRIgine 100 MG 1tablet Orally twice a day Active levETIRAcetam 750 MG 2 tabs Orally every 12 hrs Active Vitamin D 50 MCG (2000 UT) tablets Orall y Once a day Active Lidocaine Pain Relieving 4 % 1 patch as needed Externally Once a day Not-Taking Gabapentin 100 MG 3 capsule three time s a day Not-Taking oxyCODONE HCl 5 MG 1 tablet as needed Orally every 6 hrs as needed for 7 days 11/10/2022 Not-Taking Fluticasone Propionate 50 MCG/ACT 1 spray in each nostril Nasally Once a day for 30 day(s) 07/06/2022 Not-Taking valACYclovir HCl 1 GM 2 tablet Orally tw ice a day for 1 days 02/23/2023 Active Metoprolol Succinate 25 MG 1 capsule Ora lly Once a day Active Multi Vitamin - 1 tablet Orally Once a day Active IMMUNIZATIONS Vaccine Route Administration Date Status Comme nts Fluarix Quadrivalent IM Intramuscular 12/05/2013 Administe red PPSV23 (Pnemovax) IM Intramuscular 12/12/2013 Administered Shingles IM Intramuscular 12/26/2013 Administered Prevnar 13 IM Intramuscular 01/15/2014 Administered Fluarix Quadrivalent IM Intramuscular 12/04/2014 Administe red Fluarix Quadrivalent IM Intramuscular 12/09/2015 Administe red TDaP IM Intramuscular 12/12/2015 Administered Fluarix Quadrivalent IM Intramuscular 12/28/2016 Administe red Fluarix Quadrivalent IM Intramuscular 12/28/2017 Administe red Fluarix Quadrivalent IM Intramuscular 12/09/2018 Administe romina PPSV23 (Pnemovax) IM Intramuscular 12/13/2018 Administered Shingrix IM Intramuscular 05/05/2019 Administered pt was given the vaccine at [facility] in [place]. Shingles IM Intramuscular 09/04/2019 Administered Pt was given vaccine at [facility] in [place]. Influenza High Dose Unknown 12/17/2019 [facility] [facility] Covid Vaccine Unknown 05/27/2020 Administered Pfizer SARS-COV-2 Pfizer Unknown 05/04/2020 Administered SARS-COV-2 Pfizer Unknown 12/08/2020 Administered Influenza High Dose Unknown 12/18/2020 Administered Influenza High Dose IM Intramuscular 12/03/2022 Administer ed Influenza High Dose IM Intramuscular 11/22/2023 Administer ed Flu Vaccine Unknown 12/05/2013 Pending SOCIAL HISTORY Tobacco Use: Social History Observation Description Date Details (start date - stop date) Never Smoker NA - NA Sex Assigned At : Social History Observation Description Sex Assigned At Unknown Tobacco Use/Smoking Question Answer Notes Patient is a nonsmoker Additional Findings: Tobacco Non-User Cu rrent non-smoker, currently using no form of tobacco Alcohol Screen Question Answer Notes Did you have a drink containing alcohol in the p ast year? No Points 0 Interpretation Negative PROBLEMS Problem Type ICD Code Onset Dates Problem Status W/U Status Risk SNOMED Code Notes Problem Atrial fibrillation (I48.91) Active confirmed Atrial fibrillation (84631654) Problem Prostatism (N40.0) Active confirmed 73385613 Problem Essential hypertension (I10) Active confirmed 37525051 Problem Prediabetes (R73.09) Active confirmed 2349914 Problem Obstructive sleep apnea (G47.33) Active confirmed Obstructive sleep apnea (28809249) Problem Leukocytosis, unspecified type (D72.829) Active confirmed 029136352 Problem Complex partial seizure disorder (G40.209) Active confirmed Complex partial epileptic seizure (997972481) Problem Cervical spondylosis with myelopathy (M47.12) Active confirmed 50838599 Problem Lumbosacral spondylosis without myelopathy (M47.817) Active confirmed 18089027 Problem Follicular lymphoma, unspecified body region, unspecified follicular lymphoma type (C82.90) Active confirmed 395633801 Problem 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) Active confirmed 184387884 VITAL SIGNS Blood pressure diastolic 66 mm Hg 08/26/2023 Height 73 in 08/26/2023 Blood pressure systolic 104 mm Hg 08/26/2023 Weight 218 lbs 08/26/2023 BMI 28.76 kg/m2 08/26/2023 Encounters Encounter Location Date Provider Diagnosis Krishna Arroyo MD [address] [place] [phone] 03/23/2024 Krishna Arroyo Prediabetes R73.09 ; Essential hypertension I10 ; Prostatism N40.0 and Leukocytosis, unspecified type D72.829 Krishna Arroyo MD [address] [place] [id number] 11/22/2023 Krishna Arroyo Encounter for immunization Z23 Krishna Arroyo MD [address] [place] [phone] 08/26/2023 Krishna Arroyo Atrial fibrillation I48.91 and Complex partial seizure disorder G40.209 ASSESSMENTS Encounter Date Diagnosis Assessment Notes Treatment Notes Treatment Clinical Notes 03/23/2024 Prediabetes (ICD-10 - R73.09) 11/22/2023 Encounter for immunization (ICD-10 - Z23) 08/26/2023 Atrial fibrillation (ICD-10 - I48.91) is going to see cardiology in [facility] for watchman 08/26/2023 Complex partial seizure disorder (ICD-10 - G40.209) is doing well on meds., will continue current regiment 03/23/2024 Essential hypertension (ICD-10 - I10) 03/23/2024 Prostatism (ICD-10 - N40.0) 03/23/2024 Leukocytosis, unspecified type (ICD-10 - D72.829) PLAN OF TREATMENT Pending Test Test Name Order Date Electrocardiogram (EKG) 12/12/2015 Electrocardiogram (EKG) 01/01/2017 Electrocardiogram (EKG) 01/06/2018 Electrocardiogram (EKG) 01/19/2019 Complete Blood Count Auto Diff 01/09/202 5 Comprehensive [place]. Panel Fast 5 Lipid Panel 03/23/2024 PSA,Total (Free>4and<10) 03/23/2024 UA ClnCatch+Micro w/rflx Cult 03/23/2024 Next Appt Details Provider Name:Krishna Best ier, 03/30/2024 08:30:00 AM, [address] [place] [address], [address], [place], [place], [phone], Insurance Providers Payer Name Payer Address Payer Phone Subscriber Number Group Number Insured Name Patient Relationship to Insured Coverage Start Date Coverage End Date MEDICARE NHIC AILYN [address] [place] [address] [id number] Darinel Gomez Self - patient is the insured [employer] [facility] [address] [place], [place] [id number] [phone] [id number] Darinel Gomez Self - patient is the insured MEDICAL (GENERAL) HISTORY Medical History History ICD Code colonoscopy 06/2008; colonoscopy 01/31/[address] Moon - repeat 10 yrs
[2024-03-23 12:42] LABS: Bacteria Urine Trace (None Seen); Hyaline Casts Urine 0-2 /LPF (0-2); RBC Urine 0-2 /HPF (0-2); Squamous Epithelial Cell Urine 0-2 /HPF (0-2); WBC Urine 0-5 /HPF (0-5)
[2024-03-23 13:02] LABS: Alanine Aminotransferase 23 U/L (0-40); Albumin Level 4.5 g/dL (3.5-5.0); Alkaline Phosphatase 64 U/L (39-117); Anion Gap 12 (12-20); Aspartate Amino Transferase 28 U/L (5-37); Bilirubin Total 1.4 mg/dL (0.0-1.0); Blood Urea Nitrogen 21 mg/dL (9-16); Carbon Dioxide 29 mmol/L (22-29); Chloride 105 mmol/L (96-108); Cholesterol 192 mg/dL (<200); Estimated Glomerular Filt Rate > 60; Glucose Fasting 97 mg/dL (60-99); HDL Cholesterol 65 mg/dL (>40); LDL Cholesterol Calculated 113 mg/dL (<100); Potassium 4.6 mmol/L (3.3-5.1); Sodium 141 mmol/L (135-145); Total Protein 6.8 g/dL (6.5-8.0); Triglycerides 72 mg/dL (<150)
[2024-03-23 13:14] LABS: PSA,Total (Free>4and<10) 0.69 ng/mL (0.00-4.00)
== END 2024-03-23 11:38 | disposition home or self-care (01) ==
LOC: HO.LNP 11:37
PROVIDERS: Visit Provider Internal Medicine
DX: R73.09 Other abnormal glucose (principal); I10 Essential (primary) hypertension; N40.0 Benign prostatic hyperplasia without lower urinary tract symptoms; D72.829 Elevated white blood cell count, unspecified; Z12.5 Encounter for screening for malignant neoplasm of prostate
CPT/HCPCS: 80053; 80061; 81001; 84153; 85025

== ENCOUNTER 2024-07-12 10:21 | Outpatient (AMB) | payer MEDICARE, SELFPAY ==
--- NOTE | 2024-07-12 10:27 | A.OFFVIS_ITS ---
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 Overall, he feels well in that regard. No recent issues. He was on anticoagulation but because of seizure history, fall/rib fractures extra he underwent Watchman procedure. Doing well in that regard as well. He is on aspirin/Plavix. Otherwise, no specific concerns. [facility] Medical History (Updated 04/28/24 @ 13:54 by Joana Brush RN) On anticoagulant therapy Atrial fibrillation Sleep apnea Non-Hodgkins lymphoma Complex partial seizure Essential hypertension EVER (obstructive sleep apnea) Surgical History History of heart assist device History of carpal tunnel release of both wrists Hx of hand surgery Hx of tonsillectomy History of brain surgery H/O colonoscopy No pertinent past surgical history Family History Father No problems noted. Mother No problems noted. Social History Alcohol intake: never Patient Tobacco Use Status: Never used Tobacco Review of Systems Const Denies chills, Denies fatigue, Denies fever(s), Denies frequent falls, Denies weakness, Denies weight gain and Denies weight loss ENT Denies dizziness Card Denies chest pain, Denies leg edema, Denies lightheadedness, Denies palpitations, Denies dyspnea and Denies dyspnea on exertion Resp Denies cough, Denies dyspnea and Denies dyspnea on exertion GI Denies hematochezia Musc Denies abnormal gait, Denies muscle weakness, Denies numbness, Denies radiating pain into limb and Denies tingling Neuro Denies abnormal gait, Denies dizziness, Denies frequent falls, Denies numbness, Denies tingling and Denies weakness Endo Denies fatigue and Denies palpitations Physical Exam Vital Signs: Last Vital Signs Pulse 58 07/12/24 10:29 BP 120/70 07/12/24 10:29 BMI result Body Mass Index 28.6 Const General: comfortable and no acute distress Orientation/consciousness: patient oriented x3 HEENT Other: Unremarkable Head: Yes normal to inspection Neck Neck: Yes normal visual inspection Chest Chest palpation & inspection: normal inspection of the chest Resp Auscultation: clear to auscultation bilaterally Cardio Palpation: normal PMI Heart sounds: S1 normal heart sound present, S2 normal heart sound present, no gallops, no murmurs and no rubs GI Palpation (GI): Soft to palpation Back/Spine/Pelvis Other: unremarkable Skin General skin exam: no rashes or lesions noted Neuro General: patient oriented x3 Extrem General: Yes normal to inspection Psych Mental Status: mental status grossly normal Assessment & Plan Assessment & Plan (1) PAF (paroxysmal atrial fibrillation): Code(s): I48.0 - Paroxysmal atrial fibrillation Category: Medical Plan: Continue beta-blockers. Status post Watchman device. Continue aspirin indefinitely. Plavix still end of August and verified with . (2) Essential hypertension: Code(s): I10 - Essential (primary) hypertension Category: Medical Plan: Stable. No changes. Previously on valsartan but not anymore. (3) EVER (obstructive sleep apnea): Code(s): G47.33 - Obstructive sleep apnea (adult) (pediatric) Category: Medical Plan: On CPAP. 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 He still gets seizures intermittently. Hence hence off anticoagulation. Plan Discussion Notes I reviewed the patient's follow-up care after the Watchman VALENTINE closure procedure in detail. The conversation included clarifications regarding the anticoagulation strategy; specifically, the transition plan from Aspirin/Plavix to long-term aspirin use post-procedure was reinforced. Continued CPAP use for sleep apnea, reducing AFib risk, was encouraged, as was the patient's self- monitoring practice for arrhythmias using a Fitbit. Follow-up plans and affirmation of understanding and consent for past and pending interventions were confirmed. Patient was informed and verbally consented to the use of an ambient scribe for clinic note documentation during this visit. Patient Instructions: - Continue to take Plavix until the end of August. - Continue taking aspirin as directed. - Continue using CPAP every night as prescribed. - Monitor your heart rhythm using your Fitbit and report any AFib symptoms. - If any new symptoms or concerns arise, contact the clinic immediately. - Attend all scheduled follow-up appointments. Coding Level of Care Code Est Pt Level 4 (03935) Complex EM visit Add On G2211 Diagnoses PAF (paroxysmal atrial fibrillation) I48.0 Essential hypertension I10 EVER (obstructive sleep apnea) G47.33 Complex partial seizure G40.209
[2024-07-12 10:29] VITALS: BP 120/70; PULSE 58; BMI 28.6
== END 2024-07-12 10:43 | disposition home or self-care (01) ==
LOC: HO.HCS 10:22
PROVIDERS: PCP Internal Medicine; Visit Provider Internal Medicine
DX: I48.0 Paroxysmal atrial fibrillation (principal); I10 Essential (primary) hypertension; G47.33 Obstructive sleep apnea (adult) (pediatric); G40.209 Localization-related (focal) (partial) symptomatic epilepsy and epileptic syndromes with complex partial seizures, not intractable, without status epilepticus
CPT/HCPCS: 99214; G2211

== ENCOUNTER → 2024-07-12 10:21 | Outpatient (BNVA) | payer MEDICARE, SELFPAY | PROVIDERS: PCP Internal Medicine; Visit Provider Internal Medicine | DX: I48.0 Paroxysmal atrial fibrillation (principal); I10 Essential (primary) hypertension; G47.33 Obstructive sleep apnea (adult) (pediatric); G40.209 Localization-related (focal) (partial) symptomatic epilepsy and epileptic syndromes with complex partial seizures, not intractable, without status epilepticus; Z79.01 Long term (current) use of anticoagulants; Z79.82 Long term (current) use of aspirin | CPT/HCPCS: 99212 ==

== ENCOUNTER 2024-11-03 07:24 | Day surgery (SDC) | payer MEDICARE, SELFPAY ==
--- NOTE | 2024-11-02 11:59 | HO.ANESPROP2 ---
Documented by User: Lesley Appiah NP 11/02/24 12:03 HPI - Anesthesia Eval Consult details Narrative: 74yo M for Colonoscopy Follows [facility] Cardiology for: Afib s/p watchman 03/2024, htn. Stable at 06/2024 office visit Non Hodgkins - obs only - no chemo/rad required Complex seizure ds s/p resection carvernous hemangioma PMFSH Active Problems Active Problems: All Active Problems PAF (paroxysmal atrial fibrillation) (Acute) Complex partial seizure (Acute) Essential hypertension (Acute) EVER (obstructive sleep apnea) (Acute) Past Medical History Medical History On anticoagulant therapy Atrial fibrillation Non-Hodgkins lymphoma Complex partial seizure Essential hypertension EVER (obstructive sleep apnea) Family History Family History Father No problems noted. Mother No problems noted. Surgical History Surgical History History of heart assist device History of carpal tunnel release of both wrists Hx of hand surgery Hx of tonsillectomy History of brain surgery H/O colonoscopy Social History Social History Alcohol intake: never Patient Tobacco Use Status: Never used Tobacco Use of substances other than those prescribed or required for medical reasons: No Are you DNR?: No Advance Directives: No Advance Directives Information Provided: Yes Meds Allergies Allergy/AdvReac Type Severity Reaction Status Date / Time lisinopril AdvReac Unknown Cough Verified 11/03/24 07:47 bananas AdvReac Unknown GI upset Uncoded 03/19/23 09:28 Home Medications ?Medication ?Instructions ?Recorded ?Confirmed ?Last Taken ?Type levetiracetam 750 mg tablet 750 mg PO BID 11/12/21 11/03/24 11/03/24 06:50 History multivitamin 1 tab PO DAILY 11/12/21 11/03/24 Unknown History cholecalciferol (vitamin D3) 50 50 mcg PO DAILY 01/12/24 11/03/24 Unknown History mcg (2,000 unit) capsule lamotrigine 25 mg tablet 100 mg PO BID 01/12/24 11/03/24 11/03/24 06:50 History aspirin 81 mg tablet,delayed 81 mg PO DAILY 04/28/24 11/03/24 10/31/24 History release Exam Pertinent Lab Results Pertinent Lab Results: Laboratory Tests 03/23/24 07:30 WBC 5.8 Hgb 15.5 Hct 44.7 Plt Count 182 Sodium 141 Potassium 4.6 Chloride 105 Carbon Dioxide 29 BUN 21 H Creatinine 0.87 Narrative Narrative: EKG 03/2024 Ventricular Rate: 58 BPM Atrial Rate: 58 BPM P-R Interval: 230 ms QRS Duration: 118 ms Q-T Interval: 470 ms QTC Calculation(Bazett): 461 ms P [place]: 55 degrees R [place]: -10 degrees T [place]: 9 degrees Sinus bradycardia with 1st degree A-V block Incomplete right bundle branch block Borderline ECG When compared with ECG of 05-Apr-2024 06:23, MANUAL COMPARISON REQUIRED DATA IS UNCONFIRMED Confirmed by FELIPA EVANS MD ([id number]) on 04/05/2024 11:59:05 AM Assessment and Plan Assessment Anesthesia Assessment: Chart Reviewed Documented by User: Lorene Valenzuela MD 11/03/24 08:43 PMFSH Past Medical History Medical History On anticoagulant therapy Atrial fibrillation Non-Hodgkins lymphoma Complex partial seizure Essential hypertension EVER (obstructive sleep apnea) Family History Family History Father No problems noted. Mother No problems noted. Family history of problems with anesthesia: No Surgical History Surgical History History of heart assist device History of carpal tunnel release of both wrists Hx of hand surgery Hx of tonsillectomy History of brain surgery H/O colonoscopy History of Problems with Anesthesia: No Social History Social History Alcohol intake: never Patient Tobacco Use Status: Never used Tobacco Use of substances other than those prescribed or required for medical reasons: No Are you DNR?: No Advance Directives: No Advance Directives Information Provided: Yes Meds Allergies Allergy/AdvReac Type Severity Reaction Status Date / Time lisinopril AdvReac Unknown Cough Verified 11/03/24 07:47 bananas AdvReac Unknown GI upset Uncoded 03/19/23 09:28 Home Medications ?Medication ?Instructions ?Recorded ?Confirmed ?Last Taken ?Type levetiracetam 750 mg tablet 750 mg PO BID 11/12/21 11/03/24 11/03/24 06:50 History multivitamin 1 tab PO DAILY 11/12/21 11/03/24 Unknown History cholecalciferol (vitamin D3) 50 50 mcg PO DAILY 01/12/24 11/03/24 Unknown History mcg (2,000 unit) capsule lamotrigine 25 mg tablet 100 mg PO BID 01/12/24 11/03/24 11/03/24 06:50 History aspirin 81 mg tablet,delayed 81 mg PO DAILY 04/28/24 11/03/24 10/31/24 History release Exam Airway Mallampati Class: II TM Dist: <=3cm Heart: rrr Lungs: cta Assessment and Plan Assessment Anesthesia Assessment: Anesthesia Plan Discussed Final Anesthetic Review Family History of Problems with Anesthesia: No History of Problems with Anesthesia: No NPO: Yes ASA Class: III Final Preanesthetic Review: No Changes in Pt Med Stat, Meds/Allgs Chart Reviewed, Consent Obtained/Reviewed and Anes Risks/Benef Reviewed Patient Risk: Intermediate Procedure Risk: Low Anesthetic Plan Anesthetic Plan: MAC: Disposition: Standard PACU
[2024-11-03 07:42] VITALS: BMI 26.6
[2024-11-03 07:50] VITALS: BP 137/66; PULSE 55; RESP 15; TEMP 36.8; O2SAT 98
[2024-11-03] MEDS: Lactated Ringers 1,000 ML 100 ML IVCONT (08:06)
[2024-11-03 09:53] VITALS: BP 116/66; PULSE 49; RESP 16; TEMP 36.2; O2SAT 98
--- NOTE | 2024-11-03 09:53 | P.BOP_ITS ---
Brief Operative Note Date of Service: 11/03/24 Pre-op diagnosis: Screening Post-op diagnosis: other (Colon polyp) Procedure: Colonoscopy to the cecum and TI with hot snare polypectomy and placement of 1 Resolution clip Surgeon: Jabier Moon MD Anesthesia: MAC Was an Industrial Waste Treatment Technician used for this Procedure?: No Estimated blood loss (mL): 0 Pathology: other (A. Polyp at 20cm) Condition: stable Disposition: PACU
[2024-11-03 10:08] VITALS: BP 126/69; PULSE 49; RESP 16; TEMP 36.2; O2SAT 100
--- NOTE | 2024-11-03 11:15 | OP_ITS ---
DATE OF SERVICE: 11/03/2024 SURGEON: Jabier Moon MD INDICATIONS: The patient presents for evaluation of colorectal cancer screening. Full consent has been obtained from him for this, including risks of bleeding and perforation. PREOPERATIVE DIAGNOSIS: Colorectal cancer screening. POSTOPERATIVE DIAGNOSIS: PROCEDURE PERFORMED: Colonoscopy to cecum and terminal ileum with hot snare polypectomy and placement of a Resolution clip ESTIMATED BLOOD LOSS: COMPLICATIONS: ANESTHESIA: Monitored anesthesia care. ASSISTANTS: SPECIMENS: POSTOPERATIVE DIAGNOSES: Colorectal cancer screening, colon polyp, diverticulosis, and internal hemorrhoids. DESCRIPTION OF PROCEDURE: The patient was placed in the left lateral decubitus position. The digital rectal exam revealed no abnormalities other than some external hemorrhoids. The Olympus video pediatric colonoscope was entered into the rectum and advanced easily to the cecum. Once in the cecum, I did identify normal-appearing cecal pouch with appendiceal orifice and a normal-appearing ileocecal valve. The terminal ileum was cannulated and appeared normal. The scope was withdrawn back in the colon. The entire cecum and ileocecal valve appeared normal. The scope was slowly withdrawn assessing all mucosal surfaces carefully. Preparation was excellent. At 20 cm, was an approximately 10 mm grossly adenomatous polyp, which was removed by hot snare polypectomy and recovered by suction. The polypectomy site appeared clean, without any sign of residual polyp nor bleeding. A single Resolution clip was applied to the polypectomy site with good deployment and good hemostasis. I did not visualize any other polyps, colitis, nor angiodysplasia. There was a moderate amount of sigmoid diverticulosis. In the rectum, scope was retroflexed visualizing internal hemorrhoids but no other pathology. The scope was straightened and withdrawn from the patient. He tolerated the procedure well and was returned to the recovery area in stable condition. IMPRESSION: 1. Colon polyp. 2. Diverticulosis. 3. Internal and external hemorrhoids. PLAN: The results of the pathology will be checked. He was advised not to use any NSAIDs for 1 week. He was advised to resume his aspirin in 48 hours. Given his age and these findings, I do not think he will need any further screening colonoscopies. He will otherwise see me on a p.r.n. basis. MD DARYA Dietz/LUCERO / [phone] [facility]PITALChristopher
== END 2024-11-03 10:29 | disposition home or self-care (01) ==
PROVIDERS: PCP Internal Medicine; Visit Provider Internal Medicine
PROC: 0DJD8ZZ Inspection of Lower Intestinal Tract, Via Natural or Artificial Opening Endoscopic (ICD-10-PCS; CPT 45378; principal; 2024-11-03 08:30)
DX: Z12.11 Encounter for screening for malignant neoplasm of colon (principal); D12.5 Benign neoplasm of sigmoid colon; K57.30 Diverticulosis of large intestine without perforation or abscess without bleeding; K64.8 Other hemorrhoids; K64.4 Residual hemorrhoidal skin tags; I10 Essential (primary) hypertension; I48.91 Unspecified atrial fibrillation; Z95.818 Presence of other cardiac implants and grafts; G40.209 Localization-related (focal) (partial) symptomatic epilepsy and epileptic syndromes with complex partial seizures, not intractable, without status epilepticus; C85.90 Non-Hodgkin lymphoma, unspecified, unspecified site; G47.33 Obstructive sleep apnea (adult) (pediatric); Z79.01 Long term (current) use of anticoagulants; Z79.82 Long term (current) use of aspirin; Z79.899 Other long term (current) drug therapy; Z99.89 Dependence on other enabling machines and devices; Z88.8 Allergy status to other drugs, medicaments and biological substances; Z98.890 Other specified postprocedural states
CPT/HCPCS: 45385; 88305; J2704

== ENCOUNTER 2025-01-11 13:07 | Outpatient (AMB) | payer MEDICARE, SELFPAY ==
--- OUTSIDE RECORDS SUMMARY | 2023-08-26 06:15 | XMS_ITS ---
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 Name Role Phone Krishna Arroyo Primary Care Provider Allergies Allergen (clinical drug ingredient) Drug/Non Drug Allergy documented on EMR Reaction Allergy Type Onset Date Status lisinopril Lisinopril cough Drug Allergy Activ e banana allergenic extract bananas (uncoded) GI Upset Allergy Active REASON FOR VISIT 6 month Medications Medication SIG (Take, Route, Frequency, Duration) Notes Start Date End Date Status Eliquis 5 MG as directed Orally twice a day 08/29/2021 Active valACYclovir HCl 1 GM 2 tablet Orally tw ice a day for 1 days 02/23/2023 Active Multi Vitamin - 1 tablet Orally Once a day Active Vitamin D 50 MCG (1999 UT) tablets Orall y Once a day Active levETIRAcetam 750 MG 2 tabs Orally every 12 hrs Active lamoTRIgine 100 MG 1tablet Orally twice a day Active Fluticasone Propionate 50 MCG/ACT 1 spray in each nostril Nasally Once a day for 30 day(s) 07/06/2022 Not-Taking oxyCODONE HCl 5 MG 1 tablet as needed Orally every 6 hrs as needed for 7 days 11/10/2022 Not-Taking Ibuprofen 800 MG 1 tablet Orally Thre e times a day for 30 day(s) 02/16/2011 Not-Taking Gabapentin 100 MG 3 capsule three time s a day Not-Taking Lidocaine Pain Relieving 4 % 1 patch as needed Externally Once a day Not-Taking Metoprolol Succinate 25 MG 1 capsule Ora lly Once a day Active Vital Signs Blood pressure systolic 104 mm Hg 08/26/19 24 Blood pressure diastolic 66 mm Hg 024 Height 73 in 08/26/2023 Weight 218 lbs 08/26/2023 BMI 28.76 kg/m2 08/26/2023 Encounters Encounter Location Date Provider Diagnosis Krishna Arroyo MD [address] [place] [address] [address] [place], [place] [id number] 08/26/2023 Krishna Arroyo Atrial fibrillation I48.91 and Complex partial seizure disorder G40.209 Assessments Encounter Date Diagnosis (ICD Code) Assessment Notes Treatment Notes Treatment Clinical Notes Section Notes 08/26/2023 Atrial fibrillation (ICD-10 - I48.91) is going to see cardiology in [facility] for watchman 08/26/2023 Complex partial seizure disorder (ICD-10 - G40.209) is doing well on meds., will continue current regiment Plan Of Treatment Medication Medication Name Sig Start Date Stop Date Notes Eliquis 5 MG as directed Orally twice a day 08/29/2021 levETIRAcetam 750 MG 2 tabs Orally every 12 hrs Treatment Notes Assessment Notes Atrial fibrillation is going to see card iology in [facility] for [facility] Complex partial seizure disorder is doin g well on meds., will continue current regiment Next Appt Details Provider Name:Krishna mccall, 03/29/2025 07:30:00 AM, [address] [place] [address], [address], [place], [place], [phone], Provider Name:Krishna mccall, 04/05/2025 09:30:00 AM, [address] [place] [address], [address], [place], [place], [phone], Progress Notes * Darinel MARCELO MDOB:[birth year] (72 yo M)Acc No.[id number]:08/26/2023 Progress Notes Patient: Darinel Colvin Provider: Dago Arroyo MD :1950 A ge:72 Y S ex:Male Date:08/26/2023 Address:[address] [place] [address] [id number] Subjective: * Chief Complaints: * 6 month * HPI: S ymptom(s): patient is a 72 yo male here for 6 month follow up visit, has not had any seizures in 6 months. is thinking of getting the watchman procedure so he can get off the anticoagulants. * ROS: G eneral/Constitutional: Denies C hills. D enies F atigue. D enies F ever. D enies H eadache. E NT: Patient denies d ecreased sense of smell , any loss of taste , sore throat. D enies S ore throat. R espiratory: Denies C ough. D enies S hortness of breath at rest. D enies S hortness of breath with exertion. G astrointestinal: Denies D iarrhea. D enies N ausea. M usculoskeletal: Patient denies m uscle aches. P eripheral Vascular: Patient denies r ed and blue toes. * Medical History: * Surgical History: * Hospitalization/Major Diagno stic Procedure: * Medications: T akinglamoTRIgine 100 MG Tablet 1tablet Orally twice a dayVitamin D 50 MCG (1999 UT) Capsule tablets Orally Once a dayMulti Vitamin - Tablet 1 tablet Orally Once a dayvalACYclovir HCl 1 GM Tablet 2 tablet Orally twice a dayEliquis 5 MG Tablet as directed Orally twice a daylevETIRAcetam 750 MG Tablet 2 tabs Orally every 12 hrsMetoprolol Succinate 25 MG Capsule ER 24 Hour Sprinkle 1 capsule Orally Once a dayTaking lamoTRIgine 100 MG Tablet 1tablet Orally twice a dayTaking Vitamin D 50 MCG (1999 UT) Capsule tablets Orally Once a dayTaking Multi Vitamin - Tablet 1 tablet Orally Once a dayTaking valACYclovir HCl 1 GM Tablet 2 tablet Orally twice a dayTaking Eliquis 5 MG Tablet as directed Orally twice a dayTaking levETIRAcetam 750 MG Tablet 2 tabs Orally every 12 hrsTaking Metoprolol Succinate 25 MG Capsule ER 24 Hour Sprinkle 1 capsule Orally Once a dayNot-Taking/PRNLidocaine Pain Relieving 4 % Patch 1 patch as needed Externally Once a dayGabapentin 100 MG Capsule 3 capsule three times a dayoxyCODONE HCl 5 MG Tablet 1 tablet as needed Orally every 6 hrs as neededFluticasone Propionate 50 MCG/ACT Suspension 1 spray in each nostril Nasally Once a dayIbuprofen 800 MG Tablet 1 tablet Orally Three times a dayMedication List reviewed and reconciled with the patientNot-Taking/PRN Lidocaine Pain Relieving 4 % Patch 1 patch as needed Externally Once a dayNot-Taking/PRN Gabapentin 100 MG Capsule 3 capsule three times a dayNot-Taking/PRN oxyCODONE HCl 5 MG Tablet 1 tablet as needed Orally every 6 hrs as neededNot-Taking/PRN Fluticasone Propionate 50 MCG/ACT Suspension 1 spray in each nostril Nasally Once a dayNot-Taking/PRN Ibuprofen 800 MG Tablet 1 tablet Orally Three times a dayMedication List reviewed and reconciled with the patient * Allergies: L isinopril: coughbananas: GI Upsetyes[Allergies Verified] Objective: * Vitals: H t: 73, Wt:218, BMI:28.76, BP:104/66. * Examination: G eneral Examination: GENERAL APPEARANCE: alert, well hydrated, in no distress , male. HEAD: normocephalic. SKIN: good turgor. HEART: regular rate and rhythm, no murmurs, rubs, gallops. LUNGS: no wheezes, rales, rhonchi, good air movement, clear to auscultation bilaterally. Assessment: * Assessment: 1. A trial fibrillation - I48.91 (Primary) 2 . C omplex partial seizure disorder - G40.209 Plan: * Treatment: 2. C omplex partial seizure disorder Continue levETIRAcetam Tablet, 750 MG, 2 tabs, Orally, every 12 hrs. Notes: is doing well on meds., will continue current regiment. * Procedure Codes: * * Sign off status: Completed true * Provider: Dago Arroyo MD Date: 0 08/26/2023 Generated for Sid hinds/Ke/Minesh on: 1 04:02 PM EDT History and Physical Notes * HPI (History of Present Illness) Category Sub-Category Detail Notes Category Not es Symptom(s) patient is a 72 yo male here for 6 month follow up visit, has not had any seizures in 6 months. is thinking of getting the watchman procedure so he can get off the anticoagulants Examination Category Sub-Category Detail Notes Category Not es General Examination GENERAL APPEARANCE: alert, w ell hydrated, in no distress , male HEAD: normocephalic HEART: regular rate and rhy thm, no murmurs, rubs, gallops LUNGS: no wheezes, rales, r honchi, good air movement, clear to auscultation bilaterally SKIN: good turgor
--- OUTSIDE RECORDS SUMMARY | 2023-11-22 03:45 | XMS_ITS ---
Author Organization Krishna Arroyo MD Address [address] [place], [place] [phone] Care Team Providers Care Vinyl Flooring Installer Name Role Phone Krishna Arroyo Primary Care Provider [phone] REASON FOR VISIT HDF Medications Medication SIG (Take, Route, Frequency, Duration) Notes Start Date End Date Status lamoTRIgine 100 MG 1tablet Orally twice a day Active Vitamin D 50 MCG (1999) tablets Orall y Once a day Active valACYclovir HCl 1 GM 2 tablet Orally tw ice a day for 1 days 02/23/2023 Active Metoprolol Succinate 25 MG 1 capsule Ora lly Once a day Active Multi Vitamin - 1 tablet Orally Once a day Active Ibuprofen 800 MG 1 tablet Orally Thre e times a day for 30 day(s) 02/16/2011 Not-Taking Eliquis 5 MG as directed Orally twice a day 08/29/2021 Active levETIRAcetam 750 MG 2 tabs Orally every 12 hrs Active oxyCODONE HCl 5 MG 1 tablet as needed Orally every 6 hrs as needed for 7 days 11/10/2022 Not-Taking Fluticasone Propionate 50 MCG/ACT 1 spray in each nostril Nasally Once a day for 30 day(s) 07/06/2022 Not-Taking Lidocaine Pain Relieving 4 % 1 patch as needed Externally Once a day Not-Taking Gabapentin 100 MG 3 capsule three time s a day Not-Taking Immunizations Vaccine Route Administration Date Status Comme nts Influenza High Dose IM Intramuscular 11/22/2023 Administer ed Encounters Encounter Location Date Provider Diagnosis Krishna Arroyo MD [address] [facility] [address] [place] [phone] 11/22/2023 Krishna Arroyo Encounter for immunization Z23 Assessments Encounter Date Diagnosis (ICD Code) Assessment Notes Treatment Notes Treatment Clinical Notes Section Notes 11/22/2023 Encounter for immunization (ICD-10 - Z23) Plan Of Treatment Next Appt Details Provider Name:Krishna Best stefany, 03/29/2025 07:30:00 AM, [address] [place] [address], [place] [address], [place], [place], [phone], Provider Name:Krishna Best stefany, 04/05/2025 09:30:00 AM, [address] [place] [address], [facility] [address], [place], [place], [phone], Progress Notes * Darinel MARCELO MDOB:[birth year] (74 yo M)Acc No.[id number]:11/22/2023 Progress Note Patient: Jose Carlos KEYURJohnDarinel M Provider: Dago Arroyo MD :1950 A ge:73 Y S ex:Male Date:11/22/2023 Address:[address] [place] [address] [id number] Subjective: * Chief Complaints: * 1 . HDF. * Medical History: * Medications: T aking lamoTRIgine 100 MG Tablet 1tablet Orally twice a day , Taking Vitamin D 50 MCG (2000 UT) Capsule tablets Orally Once a day , Taking Multi Vitamin - Tablet 1 tablet Orally Once a day , Taking valACYclovir HCl 1 GM Tablet 2 tablet Orally twice a day , Taking Metoprolol Succinate 25 MG Capsule ER 24 Hour Sprinkle 1 capsule Orally Once a day , Taking Eliquis 5 MG Tablet as directed Orally twice a day , Taking levETIRAcetam 750 MG Tablet 2 tabs Orally every 12 hrs , Not-Taking/PRN Lidocaine Pain Relieving 4 % Patch 1 patch as needed Externally Once a day , Not- Taking/PRN Gabapentin 100 MG Capsule 3 capsule three times a day , Not-Taking/PRN oxyCODONE HCl 5 MG Tablet 1 tablet as needed Orally every 6 hrs as needed , Not-Taking/PRN Fluticasone Propionate 50 MCG/ACT Suspension 1 spray in each nostril Nasally Once a day , Not-Taking/PRN Ibuprofen 800 MG Tablet 1 tablet Orally Three times a day Objective: * Vitals: Assessment: * Assessment: 1. E ncounter for immunization - Z23 (Primary) Plan: * Treatment: * Immunizations: Influenza High Dose : 0.5 mL (Dose No:1) (Route: Intramuscular) given by Sienna Shaffer , Office Staff on Left Deltoid * Procedure Codes: 9 0662 FLU VACC PRSV FREE INC ANTIG, G0008 ADMN FLU VAC NO FEE SCHED SAME DAY * Preventive Medicine: Immunizations: I nfluenza H ave you had a flu shot since the most recent November 13? Y es. * * The named appointment provid er may or may not be the originator of this progress note, and it is not deemed complete until electronically signed by the appointment provider. Sign off status: Pending * Provider: Dago Arroyo MD Date: 0 11/22/2023 Generated for Sid hinds/Ke/Emilyitting on: 04:00 PM EDT
--- OUTSIDE RECORDS SUMMARY | 2024-03-23 03:30 | XMS_ITS ---
Author Organization Krishna Arroyo MD Address [address] [place], [place] [phone] Care Team Providers Care Foil Stamp Operator Name Role Phone Krishna Arroyo Primary Care Provider Results Component Value Reference Range Notes Complete Blood Count Auto Di ff Reviewed date:03/24/2024 05:28:08 PM Interpretation: Performing Lab:[facility], [address] [place] [phone] Notes/Report: White Blood Count 5.8 4.8-10.8 X10*3/uL Red Blood Count 4.77 4.60-5.80 X10*6/uL Hemoglobin 15.5 14.0-18.0 g/dl Hematocrit 44.7 42.0-52.0 % Mean Corpuscular Volume 93.7 80.0-98.0 fL Mean Corpuscular Hemoglobin 32.5 27.0-33.0 pg Mean Corpuscular HGB Conc 34.7 31.0-36.0 g/dl Red Cell Distribution Width 12.5 11.0-16.0 % Platelet Count 182 160-400 X10*3/uL Mean Platelet Volume 10.7 9.4-12.4 fL Neutrophils Percent Auto 48.4 45-73 % Imm Gran Pct Auto 0.3 0.0-0.4 % Lymphocytes Percent Auto 34.2 20-40 % Monocytes Percent Auto 12.5 2-11 % Eosinophils Percent Auto 4.1 0-4 % Basophils Percent Auto 0.5 0-2 % NRBC Pct Auto 0.0 0.0-0.2 /100WBC Neutrophils Absolute Auto 2.8 2.0-8.3 x10*3/u L Imm Gran Abs Auto 0.02 0.00-0.03 X10*3/uL Lymphocytes Absolute Auto 2.0 1.2-4.9 X10*3/u L Monocytes Absolute Auto 0.7 0.1-1.2 X10*3/uL Eosinophils Absolute Auto 0.2 0.0-0.4 X10*3/u L Basophils Absolute Auto 0.0 0.0-0.2 X10*3/uL NRBC Abs Auto 0.000 0.0-0.012 X10*3/uL Comprehensive [place]. Panel Fa st Reviewed date:03/23/2024 06:03:15 PM Interpretation: Performing Lab:[facility], [address] [place] [phone] Notes/Report: Sodium 141 135-145 mmol/L Potassium 4.6 3.3-5.1 mmol/L Chloride 105 96-108 mmol/L Carbon Dioxide 29 22-29 mmol/L Anion Gap 12 12-20 Blood Urea Nitrogen 21 9-16 mg/dL Creatinine 0.87 0.5-1.4 mg/dL Estimated Glomerular Filt Rate > 60 Chronic Kidney Disease: Estimated GFR < 60 mL/min/1.73m2 Severe Kidney Disease: Estimated GFR < 15 mL/min/1.73m2 Glucose Fasting 97 60-99 mg/dL Calcium 10.0 8.4-10.2 mg/dL Bilirubin Total 1.4 0.0-1.0 mg/dL Aspartate Amino Transferase 28 5-37 U/L Alanine Aminotransferase 23 0-40 U/L Total Protein 6.8 6.5-8.0 g/dL Albumin Level 4.5 3.5-5.0 g/dL Alkaline Phosphatase 64 39-117 U/L Lipid Panel Reviewed date:03/23/2024 05:58:49 PM Interpretation: Performing Lab:[facility], [address] [place] [phone] Notes/Report: Triglycerides 72 <150 mg/dL Desirable Triglyceride: less than 150 mg/dL Borderline High Triglyceride 150-199 mg/dL High Triglyceride: 200-499 mg/dL Very High Triglyceride: greater than or equal to 5OO mg/dL Cholesterol 192 <200 mg/dL Desirable Cholesterol: less than 200 mg/dL Borderline High Cholesterol: 200-239 mg/dL High Cholesterol: greater than 239 mg/dL LDL Cholesterol Calculated 113 <100 mg/dL Desirable LDL: less than 100 mg/dL Near Optimal/Above Optimal LDL: 110-129 mg/dL Borderline High LDL: 130-159 mg/dL High LDL: 160-189 mg/dL Very High LDL: greater than or equal to 190 mg/dL HDL Cholesterol 65 >40 mg/dL Desirable HDL: greater than 40 mg/dL Note: This HDL assay may give artificially low results in patients with liver disease. PSA,Total (Free>4and<10) Reviewed date:03/23/2024 05:59:27 PM Interpretation: Performing Lab:[address] [phone] Notes/Report: PSA,Total (Free>4and<10) 0.69 0.00-4.00 ng/mL A Free PSA was not performed: The percentage of Free PSA can be used to enhance the differentiation of prostate cancer from benign prostatic disease in subjects whose PSA levels are between 4.0 and 10.0 ng/mL. For subjects whose PSA levels are below 4.0 or above 10.0 ng/mL, the risk of prostate cancer is determined on the basis of the PSA alone. Therefore the % Free PSA is recommended only for those subjects whose PSA levels are between 4.0 and 10.0 ng/mL. PSA methodology: [place] Al[place] i Chemiluminescent Microparticle Immunoassay (CMIA) UA ClnCatch+Micro w/rflx Cul t Reviewed date:03/23/2024 06:13:29 PM Interpretation: Performing Lab:[address] [phone] Notes/Report: [id number] Urine, Clean Catch Color Urine Yellow Appearance Urine Clear PH 5.5 5.0-9.0 Glucose Urine UA Negative Negative mg/dL Urine Blood Negative Negative Specific [place] - Urine 1.020 1.005-1.025 Urine Protein Negative Neg-Trace mg/dL Urine Ketones Negative Negative mg/dL Nitrite Urine Negative Negative Leukocyte Esterase Urine Negative Negative RBC Urine 0-2 0-2 /HPF WBC Urine 0-5 0-5 /HPF Squamous Epithelial Cell Urine 0-2 0-2 /HPF Bacteria Urine Trace None Seen Hyaline Casts Urine 0-2 0-2 /LPF REASON FOR VISIT yearly labs Encounters Encounter Location Date Provider Diagnosis Krishna Arroyo MD [address] [place] [address] [place] [phone] 03/23/2024 Krishna Arroyo Prediabetes R73.09 ; Essential hypertension I10 ; Prostatism N40.0 and Leukocytosis, unspecified type D72.829 Assessments Encounter Date Diagnosis (ICD Code) Assessment Notes Treatment Notes Treatment Clinical Notes Section Notes 03/23/2024 Prediabetes (ICD-10 - R73.09) 03/23/2024 Essential hypertension (ICD-10 - I10) 03/23/2024 Prostatism (ICD-10 - N40.0) 03/23/2024 Leukocytosis, unspecified type (ICD-10 - D72.829) Plan Of Treatment Next Appt Details Provider Name:Krishna mccall, 03/29/2025 07:30:00 AM, [address] [place] [address], [address], [phone], Provider Name:Krishna mccall, 04/05/2025 09:30:00 AM, [address] [place] [address], [place] [address], [place], [place], [phone], Progress Notes * Darinel MARCELO MDOB:[birth year] (74 yo M)Acc No.[id number]:03/23/2024 Progress Note Patient: Jose Carlos KEYURJohnDarinel Phillip Provider: Dago Arroyo MD :1950 A ge:73 Y S ex:Male Date:03/23/2024 Address:[address] [place], [place] [phone] Subjective: * Chief Complaints: * 1 . Yearly labs. * Medical History: Objective: * Vitals: Assessment: * Assessment: 1. P rediabetes - R73.09 (Primary) 2 . E ssential hypertension - I10 ? 3 . P rostatism - N40.0 4 . L eukocytosis, unspecified type - D72.829 Plan: * Treatment: 2. E ssential hypertension L AB: Complete Blood Count Auto Diff (Collection Date & Time - 03/23/2024 07:30 AM) L AB: Comprehensive [place]. Panel Fast (Collection Date & Time - 03/23/2024 07:30 AM) L AB: Lipid Panel (Collection Date & Time - 03/23/2024 07:30 AM) L AB: PSA,Total (Free>4and<10) (Collection Date & Time - 03/23/2024 07:30 AM) L AB: UA ClnCatch+Micro w/rflx Cult (Collection Date & Time - 03/23/2024 07:30 AM) 3. P rostatism L AB: Complete Blood Count Auto Diff (Collection Date & Time - 03/23/2024 07:30 AM) L AB: Comprehensive [place]. Panel Fast (Collection Date & Time - 03/23/2024 07:30 AM) L AB: Lipid Panel (Collection Date & Time - 03/23/2024 07:30 AM) L AB: PSA,Total (Free>4and<10) (Collection Date & Time - 03/23/2024 07:30 AM) L AB: UA ClnCatch+Micro w/rflx Cult (Collection Date & Time - 03/23/2024 07:30 AM) 4. L eukocytosis, unspecified type L AB: Complete Blood Count Auto Diff (Collection Date & Time - 03/23/2024 07:30 AM) L AB: Comprehensive [place]. Panel Fast (Collection Date & Time - 03/23/2024 07:30 AM) L AB: Lipid Panel (Collection Date & Time - 03/23/2024 07:30 AM) L AB: PSA,Total (Free>4and<10) (Collection Date & Time - 03/23/2024 07:30 AM) L AB: UA ClnCatch+Micro w/rflx Cult (Collection Date & Time - 03/23/2024 07:30 AM) * Procedure Codes: 3 6415 VENIPUNCT, ROUTINE* * * The named appointment provid er may or may not be the originator of this progress note, and it is not deemed complete until electronically signed by the appointment provider. Sign off status: Pending * Provider: Dago Arroyo MD Date: 0 03/23/2024 Generated for Printi ng/Faxing/eTransmitting on: 04:01 PM EDT
--- OUTSIDE RECORDS SUMMARY | 2024-03-30 04:30 | XMS_ITS ---
Author Organization Krishna Arroyo MD Address [address] [place], [place] [id number] Care Team Providers Care Filling Layer Up Name Role Phone Krishna Arroyo Primary Care Provider Allergies Allergen (clinical drug ingredient) Drug/Non Drug Allergy documented on EMR Reaction Allergy Type Onset Date Status lisinopril Lisinopril cough Drug Allergy Activ e banana allergenic extract bananas (uncoded) GI Upset Allergy Active REASON FOR VISIT review labs Medications Medication SIG (Take, Route, Frequency, Duration) Notes Start Date End Date Status Metoprolol Succinate 25 MG 1 capsule Ora lly Once a day Active Eliquis 5 MG as directed Orally twice a day 08/29/2021 Active oxyCODONE HCl 5 MG 1 tablet as needed Orally every 6 hrs as needed for 7 days 11/10/2022 Not-Taking Fluticasone Propionate 50 MCG/ACT 1 spray in each nostril Nasally Once a day for 30 day(s) 07/06/2022 Not-Taking Ibuprofen 800 MG 1 tablet Orally Thre e times a day for 30 day(s) 02/16/2011 Not-Taking levETIRAcetam 750 MG 2 tabs Orally every 12 hrs Active Lidocaine Pain Relieving 4 % 1 patch as needed Externally Once a day Not-Taking Gabapentin 100 MG 3 capsule three time s a day Not-Taking Multi Vitamin - 1 tablet Orally Once a day Active valACYclovir HCl 1 GM 2 tablet Orally tw ice a day for 1 days 02/23/2023 Active lamoTRIgine 100 MG 1tablet Orally twice a day Active Vitamin D 50 MCG (1999 UT) tablets Orall y Once a day Active Social History Tobacco Use: Social History Observation Description Date Details (start date - stop date) Never Smoker NA - NA Tobacco Use/Smoking Question Answer Notes Patient is a nonsmoker Additional Findings: Tobacco Non-User Cu rrent non-smoker, currently using no form of tobacco Alcohol Screen Question Answer Notes Did you have a drink containing alcohol in the p ast year? No Points 0 Interpretation Negative Problems Problem Type SNOMED Code ICD Code Onset Dates Problem Status W/U Status Risk Notes Problem 73437056 Aortic atherosclerosis (I70.0) Active confirmed Vital Signs Blood pressure systolic 128 mm Hg 03/30/19 25 Blood pressure diastolic 76 mm Hg 025 Height 73 in 03/30/2024 Weight 208 lbs 03/30/2024 BMI 27.44 kg/m2 03/30/2024 weight is down 10 pounds sin ce 08-26-23 Encounters Encounter Location Date Provider Diagnosis Krishna Arroyo MD [address] [place] [address] [address] [place], [place] [id number] 03/30/2024 Krishna Arroyo Aortic atheroscleros is I70.0 ; Essential hypertension I10 ; Atrial fibrillation I48.91 ; Prediabetes R73.09 and Prostatism N40.0 Assessments Encounter Date Diagnosis (ICD Code) Assessment Notes Treatment Notes Treatment Clinical Notes Section Notes 03/30/2024 Aortic atherosclerosis (ICD-10 - I70.0) discussed the need for statins. does not want to talke any further meds 03/30/2024 Essential hypertension (ICD-10 - I10) doing well on meds, will continue current regiment 03/30/2024 Atrial fibrillation (ICD-10 - I48.91) going to get watchman, 03/30/2024 Prediabetes (ICD-10 - R73.09) stable, no need for medication at this time 03/30/2024 Prostatism (ICD-10 - N40.0) stable, will continue to monitor Plan Of Treatment Medication Medication Name Sig Start Date Stop Date Notes Metoprolol Succinate 25 MG 1 capsule Orally Once a day Eliquis 5 MG as directed Orally twice a day 08/29/2021 Treatment Notes Assessment Notes Aortic atherosclerosis discussed the nee d for statins. does not want to talke any further meds Essential hypertension doing well on med s, will continue current regiment Atrial fibrillation going to get watchma n, Prediabetes stable, no need for medication at this time Prostatism stable, will continu e to monitor Next Appt Details Follow Up: 6 Months, Reason: Provider Name:Krishna Best stefany, 03/29/2025 07:30:00 AM, [address] [place] [address], [address] [facility], [place], [phone], Provider Name:Krishna Best stefany, 04/05/2025 09:30:00 AM, [address] [place] [address], [address], [place], [place], [phone], Progress Notes * Darinel MARCELO MDOB:[birth year] (73 yo M)Acc No.[id number]:03/30/2024 Progress Notes Patient: Jose Carlos KEYUR Darinel Fisher Provider: Dago Arroyo MD :1950 A ge:73 Y S ex:Male Date:03/30/2024 Address:[address] [place] [address] [id number] Subjective: * Chief Complaints: * R eview labs * HPI: D epression Screening: PHQ-9 L ittle interest or pleasure in doing things N ot at all, F eeling down, depressed, or hopeless N ot at all, T rouble falling or staying asleep, or sleeping too much N ot at all, F eeling tired or having little energy N ot at all, P oor appetite or overeating N ot at all, F eeling bad about yourself or that you are a failure, or have let yourself or your family down N ot at all, T rouble concentrating on things, such as reading the newspaper or watching television N ot at all, M oving or speaking so slowly that other people could have noticed; or the opposite, being so fidgety or restless that you have been moving around a lot more than usual N ot at all, T houghts that you would be better off or of hurting yourself in some way N ot at all, T otal Score 0 . I nterpretation and Intervention D epression Screening Findings N egative, F ollow-Up for Depression : review of PHQ-9 found negative result, no follow-up needed. patient is a 73 yo male here for review of recent labs and follow up of chronic issues. / is going to get the watchman. C ommunication Needs: Communication Needs D oes the patient have a hearing impairment N o, D oes the patient have a vision impairment? Y es, I f yes, what is the vision impairment? G lasses, D oes the patient have a cognition impairment? N o. F all Risk: History H ave you had any falls with injury in the past year? N o, H ave you had two or more falls in the past year? N o. S EBONY Questions: SDOH Questions I n the past year have you been worried about losing housing? N o, I n the past year have you or any family members you live with been unable to get any of the following when it was really needed? Check all that apply: N one. * ROS: G eneral/Constitutional: Patient denies f atigue , headache. C hange in appetite?denies. C hills d enies. F ever d enies. O phthalmologic: Blurred vision d enies. D ischarge d enies. P ain d enies. E NT: Patient denies d ecreased sense of smell , any loss of taste , sore throat. D ecreased hearing d enies. S ore throat d enies. S wollen glands d enies. E ndocrine: Cold intolerance d enies. E xcessive thirst d enies. H eat intolerance d enies. W eight loss d enies. R espiratory: Cough d enies. S hortness of breath at rest d enies. S hortness of breath with exertion d enies. W heezing d enies. C ardiovascular: Chest pain at rest d enies. C hest pain with exertion?denies. I rregular heartbeat d enies. S hortness of breath d enies. ? G astrointestinal: Abdominal pain d enies. C hange in bowel habits d enies. D iarrhea d enies. N ausea d enies. R ectal bleeding d enies. V omiting d enies . G enitourinary: Blood in urine d enies. D ifficulty urinating d enies. F requent urination d enies. M usculoskeletal: Patient denies m uscle aches. P ainful joints d enies. W eakness d enies. P eripheral Vascular: Patient denies r ed and blue toes. S kin: Dry skin d enies. I tching d enies. D enies?Mole(s), changes in moles, new moles or any lesions of concern. D enies P hotosensitivity. R jude d enies. N eurologic: Dizziness d enies. F ainting d enies. H eadache?denies. * Medical History: * Surgical History: * Hospitalization/Major Diagno stic Procedure: * Family History: F ather: 89 yrs. M other: 90 yrs. 2 brother(s) . 2 son(s) . . 1 sister -44 Ovarian cancer, Denies mental health/substance abuse family history, No pertinent family medical history, No pertinent family medical history, Denies mental health/substance abuse family history. * Social History: T obacco Use: T obacco Use/Smoking P atient is a n onsmoker, A dditional Findings: Tobacco Non-User C urrent non-smoker, currently using no form of tobacco. D rugs/Alcohol: A lcohol Screen D id you have a drink containing alcohol in the past year? N o, P oints 0 , I nterpretation N egative. M iscellaneous: C affeine: yes, frequency:, 1-2 cups per day. Children: yes. Community involvements: no. Exercise: yes, 3-4 times per week either biking or walking daily and yard work. Housing: owning. Living with: spouse. Marital status: . Occupation: retired. Pets: none. Travel outside of the [place]: no. * Medications: T akinglamoTRIgine 100 MG Tablet 1tablet Orally twice a day Vitamin D 50 MCG (2000 UT) Capsule tablets Orally Once a day Multi Vitamin - Tablet 1 tablet Orally Once a day valACYclovir HCl 1 GM Tablet 2 tablet Orally twice a day Metoprolol Succinate 25 MG Capsule ER 24 Hour Sprinkle 1 capsule Orally Once a day Eliquis 5 MG Tablet as directed Orally twice a day levETIRAcetam 750 MG Tablet 2 tabs Orally every 12 hrs Taking lamoTRIgine 100 MG Tablet 1tablet Orally twice a day Taking Vitamin D 50 MCG (2000 UT) Capsule tablets Orally Once a day Taking Multi Vitamin - Tablet 1 tablet Orally Once a day Taking valACYclovir HCl 1 GM Tablet 2 tablet Orally twice a day Taking Metoprolol Succinate 25 MG Capsule ER 24 Hour Sprinkle 1 capsule Orally Once a day Taking Eliquis 5 MG Tablet as directed Orally twice a day Taking levETIRAcetam 750 MG Tablet 2 tabs Orally every 12 hrs Not-Taking/PRNLidocaine Pain Relieving 4 % Patch 1 patch as needed Externally Once a day Gabapentin 100 MG Capsule 3 capsule three times a day oxyCODONE HCl 5 MG Tablet 1 tablet as needed Orally every 6 hrs as needed Fluticasone Propionate 50 MCG/ACT Suspension 1 spray in each nostril Nasally Once a day Ibuprofen 800 MG Tablet 1 tablet Orally Three times a day Medication List reviewed and reconciled with the patientNot-Taking/PRN Lidocaine Pain Relieving 4 % Patch 1 patch as needed Externally Once a day Not-Taking/PRN Gabapentin 100 MG Capsule 3 capsule three times a day Not-Taking/PRN oxyCODONE HCl 5 MG Tablet 1 tablet as needed Orally every 6 hrs as needed Not-Taking/PRN Fluticasone Propionate 50 MCG/ACT Suspension 1 spray in each nostril Nasally Once a day Not-Taking/PRN Ibuprofen 800 MG Tablet 1 tablet Orally Three times a day Medication List reviewed and reconciled with the patient * Allergies: L isinopril: coughbananas: GI Upsetyes[Allergies Verified] Objective: * Vitals: H t: 73, Wt:208, BMI:27.44, BP:128/76. weight is down 10 pounds since 08-26-23. * P ast Orders: L ab:Lipid Panel (Order Date - 03/23/2024) (Collection Date & Time - 03/23/2024 07:30 AM) Value Reference Range Triglycerides 72 <150 - mg/dL Cholesterol 192 <200 - mg/dL LDL Cholesterol Calculated 113 H <100 - mg/dL HDL Cholesterol 65 >40 - mg/dL L ab:PSA,Total (Free>4and<10) (Order Date - 03/23/2024) (Collection Date & Time - 03/23/2024 07:30 AM) Value Reference Range PSA,Total (Free>4and<10) 0.69 0.00-4.00 - ng/ mL L ab:UA ClnCatch+Micro w/rflx Cult (Order Date - 03/23/2024) (Collection Date & Time - 03/23/2024 07:30 AM) Value Reference Range Color Urine Yellow - Appearance Urine Clear - PH 5.5 5.0-9.0 - Glucose Urine UA Negative Negative - mg/dL Urine Blood Negative Negative - Specific Worth - Urine 1.020 1.005-1.025 - Urine Protein Negative Neg-Trace - mg/dL Urine Ketones Negative Negative - mg/dL Nitrite Urine Negative Negative - Leukocyte Esterase Urine Negative Negative - RBC Urine 0-2 0-2 - /HPF WBC Urine 0-5 0-5 - /HPF Squamous Epithelial Cell Urine 0-2 0-2 - /HP F Bacteria Urine Trace None Seen - Hyaline Casts Urine 0-2 0-2 - /LPF L ab:Comprehensive [place]. Panel Fast (Order Date - 03/23/2024) (Collection Date & Time - 03/23/2024 07:30 AM) Value Reference Range Sodium 141 135-145 - mmol/L Bilirubin Total 1.4 H 0.0-1.0 - mg/dL Aspartate Amino Transferase 28 5-37 - U/L Alanine Aminotransferase 23 0-40 - U/L Total Protein 6.8 6.5-8.0 - g/dL Albumin Level 4.5 3.5-5.0 - g/dL Alkaline Phosphatase 64 39-117 - U/L Potassium 4.6 3.3-5.1 - mmol/L Chloride 105 96-108 - mmol/L Carbon Dioxide 29 22-29 - mmol/L Anion Gap 12 12-20 - Blood Urea Nitrogen 21 H 9-16 - mg/dL Creatinine 0.87 0.5-1.4 - mg/dL Estimated Glomerular Filt Rate > 60 - Glucose Fasting 97 60-99 - mg/dL Calcium 10.0 8.4-10.2 - mg/dL * Examination: G eneral Examination: GENERAL APPEARANCE: w ell developed, well nourished, in no acute distress. HEAD: n ormocephalic, atraumatic. EYES: p upils equal, round, reactive to light and accommodation, sclera non-icteric. EARS: n ormal. ORAL CAVITY: m ucosa moist. THROAT: c lear. NECK/THYROID: n sabrina supple, full range of motion, no cervical lymphadenopathy, no bruits. SKIN: w arm and dry, no suspicious lesions. HEART: r egular rate and rhythm, S1, S2 normal, no murmurs.? LUNGS: c lear to auscultation bilaterally. ABDOMEN: s oft, nontender, nondistended, bowel sounds present, normal, no organomegaly , no masses palpable. RECTAL EXAM: n ormal tone, no external hemorrhoids, no masses palpable, prostate normal, stool guaiac negative. MALE GENITOURINARY: n ot examined. EXTREMITIES: n o clubbing, cyanosis, or edema. NEUROLOGIC: n onfocal, motor strength normal upper and lower extremities, sensory exam intact. Assessment: * Assessment: 1. A ortic atherosclerosis - I70.0 (Primary) 2 . E ssential hypertension - I10 3 . A trial fibrillation - I48.91 4 . P rediabetes - R73.09 5 . P rostatism - N40.0 Plan: * Treatment: 2. E ssential hypertension Continue Metoprolol Succinate Capsule ER 24 Hour Sprinkle, 25 MG, 1 capsule, Orally, Once a day.? Notes: doing well on meds, will continue current regiment 3. A trial fibrillation Continue Eliquis Tablet, 5 MG, as directed, Orally, twice a day. Notes: going to get watchman, 4. P rediabetes Notes: stable, no need for medication at this time 5. P rostatism Notes: stable, will continue to monitor * Procedure Codes: * Follow Up: 6 Months * * Sign off status: Completed true * Provider: Dago Arroyo MD Date: 0 03/30/2024 Generated for Sid hinds/Ke/Emilyitting on: 04:02 PM EDT History and Physical Notes * HPI (History of Present Illness) Category Sub-Category Detail Notes Category Not es Depression Screening PHQ-9 Little inte rest or pleasure in doing things: Not at all patient is a 73 yo male here for review of recent labs and follow up of chronic issues. / is going to get the watchman Feeling down, depressed, or hopeless: No t at all Trouble falling or staying asleep, or sl eeping too much: Not at all Feeling tired or having little energy: N ot at all Poor appetite or overeating: Not at all Feeling bad about yourself o r that you are a failure, or have let yourself or your family down: Not at all Trouble concentrating on thi ngs, such as reading the newspaper or watching television: Not at all Moving or speaking so slowly that other people could have noticed; or the opposite, being so fidgety or restless that you have been moving around a lot more than usual: Not at all Thoughts that you would be b lorrie off or of hurting yourself in some way: Not at all Total Score: 0 Interpretation and Intervention Depression Guru acosta Findings: Negative Follow-Up for Depression: : review of PH Q-9 found negative result, no follow-up needed SDOH Questions SDOH Questions In the past year have you been worried about losing housing?: No In the past year have you or any family members you live with been unable to get any of the following when it was really needed? Check all that apply:: None Fall Risk History Have you had any falls with injury i n the past year?: No Have you had two or more falls in the st year?: No Communication Needs Communication Needs Does the patient have a hearing impairment: No Does the patient have a vision impairmen t?: Yes If yes, what is the vision impairment?: Glasses Does the patient have a cognition impair ment?: No Examination Category Sub-Category Detail Notes Category Not es General Examination GENERAL APPEARANCE: well dev eloped, well nourished, in no acute distress HEAD: normocephalic, atrau matic EYES: pupils equal, round, reactive to light and accommodation, sclera non-icteric EARS: normal THROAT: clear NECK/THYROID: neck supple, full ra nge of motion, no cervical lymphadenopathy, no bruits HEART: regular rate and rhy thm, S1, S2 normal, no murmurs LUNGS: clear to auscultatio n bilaterally ABDOMEN: soft, nontender, non distended, bowel sounds present, normal, no organomegaly , no masses palpable NEUROLOGIC: nonfocal, motor stre ngth normal upper and lower extremities, sensory exam intact SKIN: warm and dry, no rashaun picious lesions EXTREMITIES: no clubbing, cyanosi s, or edema MALE GENITOURINARY: not examined RECTAL EXAM: normal tone, no exte rnal hemorrhoids, no masses palpable, prostate normal, stool guaiac negative ORAL CAVITY: mucosa moist
--- OUTSIDE RECORDS SUMMARY | 2024-05-03 06:40 | XMS_ITS ---
Author Organization [facility] Address [address] [place] [id number] Care Team Providers Care Outreach Clinician Name Role Phone Krishna Arroyo MD Primary Care Provider Jabier Johnson [phone] REASON FOR VISIT screening Encounters Encounter Location Date Provider Diagnosis [facility] Outpatient [address] [place] [phone] 05/03/2024 Jabier Moon Plan Of Treatment No Information Progress Notes * DEBORAH MARCELO MDOB:[birth year] (74 yo M)Acc No.[id number]:05/03/2024 COLON WITH MAC Patient: Jose Carlos BAER DEBORAH Fisher Provider: Amairani Moon MD :1950 A ge:73 Y S ex:Male Date:05/03/2024 Address:[address], [id number] Pcp:Krishna Arroyo MD Subjective: * Chief Complaints: * 1 . Screening. * Medical History: Objective: * Vitals: Assessment: Plan: * Treatment: * * The named appointment provid er may or may not be the originator of this progress note, and it is not deemed complete until electronically signed by the appointment provider. Sign off status: Pending * Provider: Amairani Moon MD Date: 0 05/03/2024 Generated for Printi ng/Faxing/eTransmitting on: 04:02 PM EDT
--- OUTSIDE RECORDS SUMMARY | 2024-05-22 05:30 | XMS_ITS ---
Author Organization Krishna Arroyo MD Address [address] [place], [place] [id number] Care Team Providers Care As400 Administrator Name Role Phone Krishna Arroyo Primary Care Provider [phone] Allergies Allergen (clinical drug ingredient) Drug/Non Drug Allergy documented on EMR Reaction Allergy Type Onset Date Status lisinopril Lisinopril cough Drug Allergy Activ e banana allergenic extract bananas (uncoded) GI Upset Allergy Active Reason For Referral Reason perforated tympanic membrane bilateral Diagnosis 1 Perforated tympanic membrane, bilateral (H72.93) Referral Organization Krishna Arroyo MD Referring Provider First Name Krishna Referring Provider Last Name Dina Referring Provider Speciality Internal M edicine Referred Provider Amairani Dalton Referred Provider Specialty Otolaryngolo gy General Notes Chio Christianson 0 05/22/2024 09:36:47 AM >patient is aware of appt Referral Priority Routine Referral Appointment Date 05/23/2024 REASON FOR VISIT blocked ears, Went to Urgent Care 05-16-24 for blocked ears Medications Medication SIG (Take, Route, Frequency, Duration) Notes Start Date End Date Status Lidocaine Pain Relieving 4 % 1 patch as needed Externally Once a day Not-Taking Gabapentin 100 MG 3 capsule three time s a day Not-Taking Ibuprofen 800 MG 1 tablet Orally Thre e times a day for 30 day(s) 02/16/2011 Not-Taking oxyCODONE HCl 5 MG 1 tablet as needed Orally every 6 hrs as needed for 7 days 11/10/2022 Not-Taking Fluticasone Propionate 50 MCG/ACT 1 spray in each nostril Nasally Once a day for 30 day(s) 07/06/2022 Not-Taking valACYclovir HCl 1 GM 2 tablet Orally tw ice a day for 1 days 02/23/2023 Active levETIRAcetam 750 MG 2 tabs Orally every 12 hrs Active Multi Vitamin - 1 tablet Orally Once a day Active Metoprolol Succinate 25 MG 1 capsule Ora lly Once a day Active Vitamin D 50 MCG (1999) tablets Orall y Once a day Active Clopidogrel Bisulfate 75 MG 1 tablet Orally Once a day Active lamoTRIgine 100 MG 1tablet Orally twice a day Active Vital Signs Blood pressure systolic 122 mm Hg 05/23/19 25 Blood pressure diastolic 70 mm Hg 025 Height 73 in 05/22/2024 Weight 210 lbs 05/22/2024 BMI 27.7 kg/m2 05/22/2024 Encounters Encounter Location Date Provider Diagnosis Krishna Arroyo MD [address] [place] [address] [place] [phone] 05/22/2024 Krishna Arroyo Perforated tympanic membrane, bilateral H72.93 Assessments Encounter Date Diagnosis (ICD Code) Assessment Notes Treatment Notes Treatment Clinical Notes Section Notes 05/22/2024 Perforated tympanic membrane, bilateral (ICD-10 - H72.93) will try to get him into ent Plan Of Treatment Treatment Notes Assessment Notes Perforated tympanic membrane, bilateral will try to get him into ent Referrals Referral Date Details 05/22/2024 05/22/2024, perforat ed tympanic membrane bilateral, R Malladi Next Appt Details Provider Name:Krishna mccall, 03/29/2025 07:30:00 AM, [address] [place] [address], [address], [phone], Provider Name:Krishna mccall, 04/05/2025 09:30:00 AM, [address] [place] [address], [place] [address], [place], [place], [phone], Progress Notes * Darinel MARCELO MDOB:[birth year] (73 yo M)Acc No.[id number]:05/22/2024 Progress Notes Patient: Darinel PUGA Provider: Dago Arroyo MD :1950 A ge:73 Y S ex:Male Date:05/22/2024 Address:[address] [place] [address] [id number] Subjective: * Chief Complaints: * B locked earsWent to Urgent Care 05-16-24 for blocked ears * HPI: S ymptom(s): patient is a 73 yo male went to urgent care and got ears flushed and now has blood in both ears. went back to urgent care and they said that there was blood. * ROS: G eneral/Constitutional: Denies C hills. D enies F atigue. D enies F ever. D enies H eadache. E NT: Admits B locked ear(s). D enies E ar pain. D enies S ore throat. R espiratory: Denies C ough. D enies S hortness of breath at rest. D enies S hortness of breath with exertion. G astrointestinal: Denies D iarrhea. D enies N ausea. * Medical History: * Surgical History: * Hospitalization/Major Diagno stic Procedure: * Medications: T akingClopidogrel Bisulfate 75 MG Tablet 1 tablet Orally Once a day lamoTRIgine 100 MG Tablet 1tablet Orally twice a day Vitamin D 50 MCG (2000 UT) Capsule tablets Orally Once a day Multi Vitamin - Tablet 1 tablet Orally Once a day valACYclovir HCl 1 GM Tablet 2 tablet Orally twice a day levETIRAcetam 750 MG Tablet 2 tabs Orally every 12 hrs Metoprolol Succinate 25 MG Capsule ER 24 Hour Sprinkle 1 capsule Orally Once a day Taking Clopidogrel Bisulfate 75 MG Tablet 1 tablet Orally Once a day Taking lamoTRIgine 100 MG Tablet 1tablet Orally twice a day Taking Vitamin D 50 MCG (2000 UT) Capsule tablets Orally Once a day Taking Multi Vitamin - Tablet 1 tablet Orally Once a day Taking valACYclovir HCl 1 GM Tablet 2 tablet Orally twice a day Taking levETIRAcetam 750 MG Tablet 2 tabs Orally every 12 hrs Taking Metoprolol Succinate 25 MG Capsule ER 24 Hour Sprinkle 1 capsule Orally Once a day Not- Taking/PRNLidocaine Pain Relieving 4 % Patch 1 patch as needed Externally Once a day Gabapentin 100 MG Capsule 3 capsule three times a day oxyCODONE HCl 5 MG Tablet 1 tablet as needed Orally every 6 hrs as needed Fluticasone Propionate 50 MCG/ACT Suspension 1 spray in each nostril Nasally Once a day Ibuprofen 800 MG Tablet 1 tablet Orally Three times a day Not-Taking/PRN Lidocaine Pain Relieving 4 % Patch [...] 1 tablet Orally Three times a day DiscontinuedEliquis 5 MG Tablet as directed Orally twice a day Medication List reviewed and reconciled with the patientDiscontinued Eliquis 5 MG Tablet as directed Orally twice a day Medication List reviewed and reconciled with the patient * Allergies: L isinopril: coughbananas: GI Upsetyes[Allergies Verified] Objective: * Vitals: H t: 73, Wt: 210, BMI:27.7, BP:122/70, Wt-k.26. * Examination: G eneral Examination: GENERAL APPEARANCE: a lert, well hydrated, in no distress.? EARS: b oth tm's occluded with blood.. ? Assessment: * Assessment: 1. P erforated tympanic membrane, bilateral - H72.93 (Primary) Plan: * Treatment: * Procedure Codes: * * Sign off status: Completed true * Provider: Dago Arroyo MD Date: 0 05/22/2024 Generated for Sid hinds/Ke/eTdarielsmitting on: 04:00 PM EDT History and Physical Notes * HPI (History of Present Illness) Category Sub-Category Detail Notes Category Not es Symptom(s) patient is a 73 yo male went to urgent care and got ears flushed and now has blood in both ears. went back to urgent care and they said that there was blood Examination Category Sub-Category Detail Notes Category Not es General Examination GENERAL APPEARANCE: alert, w ell hydrated, in no distress EARS: both tm's occluded w ith blood. Consultation Request Notes Referral Date Referring Provider Referred Provider Not es 05/22/2024 Krishna Arroyo R perforated tympanic membrane bilateral
--- OUTSIDE RECORDS SUMMARY | 2024-09-28 06:00 | XMS_ITS ---
Author Organization Krishna Arroyo MD Address [address] [place], [place] [id number] Care Team Providers Care Switchboard Operator Helper Name Role Phone Krishna Arroyo Primary Care Provider [phone] Allergies Allergen (clinical drug ingredient) Drug/Non Drug Allergy documented on EMR Reaction Allergy Type Onset Date Status lisinopril Lisinopril cough Drug Allergy Activ e banana allergenic extract bananas (uncoded) GI Upset Allergy Active REASON FOR VISIT 6 month follow up Medications Medication SIG (Take, Route, Frequency, Duration) Notes Start Date End Date Status Gabapentin 100 MG 3 capsule three time s a day Not-Taking Lidocaine Pain Relieving 4 % 1 patch as needed Externally Once a day Not-Taking Ibuprofen 800 MG 1 tablet Orally Thre e times a day for 30 day(s) 02/16/2011 Not-Taking Fluticasone Propionate 50 MCG/ACT 1 spray in each nostril Nasally Once a day for 30 day(s) 07/06/2022 Not-Taking oxyCODONE HCl 5 MG 1 tablet as needed Orally every 6 hrs as needed for 7 days 11/10/2022 Not-Taking Metoprolol Succinate 25 MG 1 capsule Ora lly Once a day Active levETIRAcetam 750 MG 2 tabs Orally every 12 hrs Active valACYclovir HCl 1 GM 2 tablet Orally tw ice a day for 1 days 02/23/2023 Active Multi Vitamin - 1 tablet Orally Once a day Active Vitamin D 50 MCG (1999) tablets Orall y Once a day Active lamoTRIgine 100 MG 1tablet Orally twice a day Active Aspirin 81 81 MG 1 tablet Orally Once a day Active Vital Signs Blood pressure systolic 132 mm Hg 09/29/19 25 Blood pressure diastolic 60 mm Hg 025 Height 73 in 09/28/2024 Weight 205 lbs 09/28/2024 BMI 27.04 kg/m2 09/28/2024 weight is down 5 pounds formerly [facility] 05-22-24 Encounters Encounter Location Date Provider Diagnosis Krishna Arroyo MD [address] [place] [address] [place] [phone] 09/28/2024 Krishna Arroyo Atrial fibrillation I48.91 and Complex partial seizure disorder G40.209 Assessments Encounter Date Diagnosis (ICD Code) Assessment Notes Treatment Notes Treatment Clinical Notes Section Notes 09/28/2024 Atrial fibrillation (ICD-10 - I48.91) had watchman procedure. no longer on anticoagulants 09/28/2024 Complex partial seizure disorder (ICD-10 - G40.209) doing well with meds and no seizures for over one year Plan Of Treatment Treatment Notes Assessment Notes Atrial fibrillation had watchman procedu re. no longer on anticoagulants Complex partial seizure disorder doing w ell with meds and no seizures for over one year Next Appt Details Provider Name:Krishna mccall, 03/29/2025 07:30:00 AM, [address] [place] [address], Suite [facility], [place], [place], [phone], Provider Name:Krishna mccall, 04/05/2025 09:30:00 AM, [address] [place] [address], [address], [place], [place], [phone], Progress Notes * Darinel MARCELO MDOB:[birth year] (74 yo M)Acc No.[id number]:09/28/2024 Progress Notes Patient: Darinel PUGA Provider: Dago Arroyo MD :1950 A ge:73 Y S ex:Male Date:09/28/2024 Address:[address] [place] [address], [id number] Subjective: * Chief Complaints: * 6 month follow up * HPI: S ymptom(s): patient is 73 yo male malathi for 6 month follow up visit/ no seizures for an entire year/ had watchman and no longer on anticoagulants. they did a repeat echo after one month. * ROS: G eneral/Constitutional: Denies C hills. D enies F atigue. D enies F ever. D enies H eadache. E NT: Denies S ore throat. R espiratory: Denies C ough. D enies S hortness of breath at rest. D enies S hortness of breath with exertion. G astrointestinal: Denies D iarrhea. D enies N ausea. * Medical History: * Surgical History: * Hospitalization/Major Diagno stic Procedure: * Medications: T akingAspirin 81 81 MG Tablet Delayed Release 1 tablet Orally Once a day lamoTRIgine 100 MG Tablet 1tablet Orally twice a day Vitamin D 50 MCG (1999 UT) Capsule tablets Orally Once a day Multi Vitamin - Tablet 1 tablet Orally Once a day valACYclovir HCl 1 GM Tablet 2 tablet Orally twice a day levETIRAcetam 750 MG Tablet 2 tabs Orally every 12 hrs Metoprolol Succinate 25 MG Capsule ER 24 Hour Sprinkle 1 capsule Orally Once a day Taking Aspirin 81 81 MG Tablet Delayed Release 1 tablet Orally Once a day Taking lamoTRIgine 100 MG Tablet 1tablet Orally twice a day Taking Vitamin D 50 MCG (1999 UT) Capsule tablets Orally Once a day Taking Multi Vitamin - Tablet 1 tablet Orally Once a day Taking valACYclovir HCl 1 GM Tablet 2 tablet Orally twice a day Taking levETIRAcetam 750 MG Tablet 2 tabs Orally every 12 hrs Taking Metoprolol Succinate 25 MG Capsule ER 24 Hour Sprinkle 1 capsule Orally Once a day Not-Taking/PRNLidocaine Pain Relieving 4 % Patch 1 [...] 1 tablet Orally Three times a day DiscontinuedClopidogrel Bisulfate 75 MG Tablet 1 tablet Orally Once a day Medication List reviewed and reconciled with the patientDiscontinued Clopidogrel Bisulfate 75 MG Tablet 1 tablet Orally Once a day Medication List reviewed and reconciled with the patient * Allergies: L isinopril: coughbananas: GI Upsetyes[Allergies Verified] Objective: * Vitals: H t: 73, Wt: 205, BMI:27.04, BP:132/60, Wt-k.99. weight is down 5 pounds since 05-22-24. * Examination: G eneral Examination: GENERAL APPEARANCE: a lert, well hydrated, in no distress.? HEAD: n ormocephalic. SKIN: g ood turgor. HEART: n o murmurs, rubs, gallops, regular rate and rhythm.? LUNGS: n o wheezes, rales, rhonchi, good air movement, clear to auscultation bilaterally. Assessment: * Assessment: 1. A trial fibrillation - I48.91 (Primary) 2 . C omplex partial seizure disorder - G40.209 Plan: * Treatment: 2. C omplex partial seizure disorder Notes: doing well with meds and no seizures for over one year * Procedure Codes: * * Sign off status: Completed true * Provider: Dago Arroyo MD Date: 0 09/28/2024 Generated for Sid hinds/Ke/eTasha on: 1 04:01 PM EDT History and Physical Notes * HPI (History of Present Illness) Category Sub-Category Detail Notes Category Not es Symptom(s) patient is 73 y o male malathi for 6 month follow up visit/ no seizures for an entire year/ had watchman and no longer on anticoagulants. they did a repeat echo after one month Examination Category Sub-Category Detail Notes Category Not es General Examination GENERAL APPEARANCE: alert, w ell hydrated, in no distress HEAD: normocephalic HEART: no murmurs, rubs, ga llops, regular rate and rhythm LUNGS: no wheezes, rales, r honchi, good air movement, clear to auscultation bilaterally SKIN: good turgor
--- OUTSIDE RECORDS SUMMARY | 2024-11-03 04:30 | XMS_ITS ---
Author Organization [facility] Address [address] [place] [id number] Care Team Providers Care Drafter Apprentice Name Role Phone Krishna Arroyo MD Primary Care Provider Jabier Johnson [phone] REASON FOR VISIT colonoscopy Encounters Encounter Location Date Provider Diagnosis [facility] [address] [place] [phone] 11/03/2024 Jabier Moon Plan Of Treatment No Information Progress Notes * DEBORAH MARCELO MDOB:[birth year] (74 yo M)Acc No.[id number]:11/03/2024 COLON WITH MAC Patient: Jose Carlos BAER DEBORAH Fisher Provider: Amairani Moon MD :1950 A ge:74 Y S ex:Male Date:11/03/2024 Address:[address], [id number] Pcp:Krishna Arroyo MD Subjective: * Chief Complaints: * 1 . Colonoscopy. * Medical History: Objective: * Vitals: Assessment: Plan: * Treatment: * * The named appointment provid er may or may not be the originator of this progress note, and it is not deemed complete until electronically signed by the appointment provider. Sign off status: Pending * Provider: Amairani Moon MD Date: 0 11/03/2024 Generated for Printi ng/Faxing/eTransmitting on: 04:01 PM EDT
--- OUTSIDE RECORDS SUMMARY | 2024-11-24 03:45 | XMS_ITS ---
Author Organization Krishna Arroyo MD Address [address] [facility] [address] [place] [phone] Care Team Providers Care Car Body Mechanic Name Role Phone Krishna Arroyo Primary Care Provider [phone] REASON FOR VISIT HDF Immunizations Vaccine Route Administration Date Status Comme nts Influenza High Dose IM Intramuscular 11/24/2024 Administer ed Encounters Encounter Location Date Provider Diagnosis Krishna Arroyo MD [address] [place] [address] [place] [phone] 11/24/2024 Krishna Arroyo Encounter for administration of vaccine Z23 Assessments Encounter Date Diagnosis (ICD Code) Assessment Notes Treatment Notes Treatment Clinical Notes Section Notes 11/24/2024 Encounter for administration of vaccine (ICD-10 - Z23) Plan Of Treatment Next Appt Details Provider Name:Krishna mccall, 03/29/2025 07:30:00 AM, [address] [place] [address], [address], [phone], Provider Name:Krishna mccall, 04/05/2025 09:30:00 AM, [address] [place] [address], [address], [phone], Progress Notes * Darinel MARCELO MDOB:[birth year] (74 yo M)Acc No.[id number]:11/24/2024 Progress Note Patient: Darinel PUGA Provider: Dago Arroyo MD :1950 A ge:74 Y S ex:Male Date:11/24/2024 Address:[address] [place] [address] [id number] Subjective: * Chief Complaints: * 1 . HDF. * Medical History: Objective: * Vitals: Assessment: * Assessment: 1. E ncounter for administration of vaccine - Z23 (Primary) Plan: * Treatment: * Immunizations: Influenza High Dose : 0.5 mL (Dose No:1) (Route: Intramuscular) given by Sienna Shaffer , Office Staff on Left Deltoid * Procedure Codes: 9 0662 FLU VACC PRSV FREE INC ANTIG, G0008 ADMN FLU VAC NO FEE SCHED SAME DAY * * The named appointment provid er may or may not be the originator of this progress note, and it is not deemed complete until electronically signed by the appointment provider. Sign off status: Pending * Provider: Dago Arroyo MD Date: 0 11/24/2024 Generated for Sid hinds/Ke/Minesh on: 1 04:02 PM EDT
--- OUTSIDE RECORDS SUMMARY | 2024-12-21 04:41 | XMS_ITS ---
Author Organization Krishna Arroyo MD Address [address] [place] [phone] Care Team Providers Care Sewing Machine Assembler Name Role Phone Krishna Arroyo Primary Care Provider [phone] REASON FOR VISIT REFILL VALACYCLOVIR 1GM Medications Medication SIG (Take, Route, Fr equency, Duration) Notes Start Date End Date Status valACYclovir HCl 1 GM 2 tablet Orally tw ice a day for 1 days 02/23/2023 Active Encounters Encounter Location Date Provider Diagnosis Krishna Arroyo MD [address] [place] [phone] 12/21/2024 Krishna Arroyo Cold stress, initial encounter T69.9XXA Assessments Encounter Date Diagnosis (ICD Code) Assessment Notes Treatment Notes Treatment Clinical Notes Section Notes 12/21/2024 Cold stress, initial encounter (ICD-10 - T69.9XXA) Plan Of Treatment Medication Medication Name Sig Start Date Stop Date Notes valACYclovir HCl 1 GM 2 tablet Orally tw ice a day for 1 days 02/23/2023 Next Appt Details Provider Name:Krishna mccall, 03/29/2025 07:30:00 AM, [address] [place] [address], [phone], Provider Name:Krishna mccall, 04/05/2025 09:30:00 AM, [address] [place] [address], [phone], Progress Notes * Darinel MARCELO MDOB:[birth year] (74 yo M)Acc No.[id number]:12/21/2024 Patient: Darinel PUGA :1950 A ge:74 Y S ex:Male Address:[address] [place] [id number] * Refills Refill valACYclovir HCl Tablet, 1 GM, Orally, 12, 2 tablet, twice a day, 1 days, Refills=4 * true * Date: Generated for Sid hinds/Ke/Minesh on: 04:02 PM EDT
[2025-01-11 13:12] VITALS: BP 120/62; PULSE 56; BMI 27.3
--- NOTE | 2025-01-11 13:12 | A.OFFVIS_ITS ---
Vital Signs 01/11/25 13:12 Height 6 ft 1 in Weight 207 lb 3.752 oz BMI 27.3 BP 120/62 Blood Pressure Location Lt brachial Position Sitting Pulse 56 Pulse Source Monitor Intake Visit Reasons: 6 mth f/up Allergies lisinopril Adverse Reaction (Unknown, Verified 11/03/24 07:47) Cough bananas Adverse Reaction (Unknown, Uncoded 03/19/23 09:28) GI upset Medication List - Last Reconciled 01/11/25 by Parminder Farias MD aspirin 81 mg PO DAILY cholecalciferol (vitamin D3) 50 mcg PO DAILY lamotrigine 100 mg PO BID levetiracetam 750 mg PO BID metoprolol succinate ER 25 mg PO DAILY multivitamin 1 tab PO DAILY HPI Comments Details: Darinel returns for follow-up regarding atrial fibrillation. He was on anticoagulation but because of seizure history, fall/rib fractures, he underwent Watchman procedure. Overall, he feels good. No cardiac complaints. [facility] Medical History On anticoagulant therapy Atrial fibrillation Non-Hodgkins lymphoma Complex partial seizure Essential hypertension EVER (obstructive sleep apnea) Surgical History History of heart assist device History of carpal tunnel release of both wrists Hx of hand surgery Hx of tonsillectomy History of brain surgery H/O colonoscopy Family History Father No problems noted. Mother No problems noted. Social History Alcohol intake: never Patient Tobacco Use Status: Never used Tobacco Review of Systems Const Denies weakness ENT Denies dizziness Card Denies chest pain, Denies chest pain with activity, Denies syncope, Denies rapid heart rate, Denies pedal edema, Denies edema, Denies leg edema, Denies lightheadedness, Denies palpitations, Denies dyspnea, Denies dyspnea on exertion and Denies orthopnea Resp Denies cough, Denies dyspnea and Denies dyspnea on exertion GI Denies hematochezia and Denies change in stool character Musc Denies abnormal gait, Denies muscle cramps, Denies muscle weakness, Denies numbness, Denies radiating pain into limb and Denies tingling Neuro Denies abnormal gait, Denies dizziness, Denies syncope, Denies numbness, Denies tingling and Denies weakness Endo Denies palpitations Physical Exam Vital Signs: Last Vital Signs Pulse 56 01/11/25 13:12 BP 120/62 01/11/25 13:12 BMI result Body Mass Index 27.3 Const General: comfortable and no acute distress Orientation/consciousness: patient oriented x3 HEENT Other: Unremarkable Head: Yes normal to inspection Neck Neck: Yes normal visual inspection Chest Chest palpation & inspection: normal inspection of the chest Resp Auscultation: clear to auscultation bilaterally Cardio Palpation: normal PMI Heart sounds: S1 normal heart sound present, S2 normal heart sound present, no gallops, no murmurs and no rubs GI Palpation (GI): Soft to palpation Back/Spine/Pelvis Other: unremarkable Skin General skin exam: no rashes or lesions noted Neuro General: patient oriented x3 Extrem General: Yes normal to inspection Psych Mental Status: mental status grossly normal Office Procedures EKG Details: EKG with sinus bradycardia at 56/Min; SC prolonged due to 222 milliseconds; no ischemic changes; [place]. [id number]-[id number], Complete Assessment & Plan Assessment & Plan (1) PAF (paroxysmal atrial fibrillation): Code(s): I48.0 - Paroxysmal atrial fibrillation Category: Medical Plan: Continue beta-blockers. Status post Watchman device. Continue aspirin. (2) Essential hypertension: Code(s): I10 - Essential (primary) hypertension Category: Medical Plan: Stable. No changes. Previously on valsartan but not anymore. (3) EVER (obstructive sleep apnea): Comment: cpap used Code(s): G47.33 - Obstructive sleep apnea (adult) (pediatric) Category: Medical Plan: On CPAP. 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 No recent seizures. Off anticoagulation. Plan Discussion Notes The patient and I discussed the current management of his atrial fibrillation, including continuation of aspirin therapy. We reviewed his seizure management with lamotrigine and levetiracetam, which are effectively controlling his condition. The patient is advised to continue using his CPAP machine for sleep apnea, which has been beneficial. Patient was informed and verbally consented to the use of an ambient scribe for clinic note documentation during this visit. Patient Instructions: - Continue taking aspirin as prescribed for atrial fibrillation management. - Use CPAP machine regularly to manage sleep apnea. Coding Level of Care Code Est Pt Level 4 (53588) Complex EM visit Add On G2211 Diagnoses PAF (paroxysmal atrial fibrillation) I48.0 Essential hypertension I10 EVER (obstructive sleep apnea) G47.33 Complex partial seizure G40.209 CPT Codes EKG - CPT: 01677-Ocnyqaxsnagbprzdt, Complete ([id number])
--- OUTSIDE RECORDS SUMMARY | 2025-01-11 16:01 | XMS_ITS | Encounter Summary ---
Author Organization [facility] Address [address] [place] [address] Phone Care Team Providers Care Results Technician Name Role Phone Krishna Arroyo MD Primary Care Provider Mo Reid MD Unavailable [phone] Encounter Details Date Type Department Care Team (Late st Contact Info) Description 02/12/2022 Procedure Pass [facility], Ct Scan - [address] [address] Social History Tobacco Use Types Packs/Day Years Used Date Smoking Tobacco: Never Sex and Gender Information Value Date Recorded Sex Assigned at Not on file Legal Sex Male 6:39 PM EST Gender Identity Not on file Sexual Orientation Not on file documented as of this encounter Functional Status * Calculated C-SSRS Risk Score (Lifetime/Recent) Answer Date of Assessment Author No Risk Indicated 02/12/2022 9:01 PM Paula Gaming RN * [place] Suicide Severity Rating Scale (Screener/Recent Self-Report) Question Answer Date of Assessment Author 1. Wish to be (Past 1 Month) No 022 9:01 PM Ale Gaming RN 2. Non-Specific Active Suici caitlyn Thoughts (Past 1 Month) No 02/12/2022 9:01 PM Rosario Gaming RN 6. Suicidal Behavior (Lifetime) No 9:01 PM Ale Gaming, VALDEMAR documented as of this encounter Plan of Treatment Upcoming Encounters Date Type Department Care Team (Late st Contact Info) Description 11/20/2025 10:30 AM EDT Blood Draw Laboratory Services, [address] [place] [address] Mo Reid MD [address] [place] [phone] [email or web address] 11/20/2025 11:30 AM EDT [facility], Division of Hematologic Oncology, [address], [address] [place] [address] Mo Reid MD [address] [place] [phone] [email or web address] documented as of this encounter Visit Diagnoses Not on filedocumented in this encounter Care Teams Results Technician Relationship Specialty Start Date End Date Krishna Arroyo MD [address] [place] [address] [place] [address] PCP - General 07/20/14 Mo Reid MD [address] [place] [phone] [email or web address] LMR Provider 07/26/14 documented as of this encounter Additional Source Comments The information contained in this document represents components of the legal health record. It is not the complete legal health record.[facility]
--- OUTSIDE RECORDS SUMMARY | 2025-01-11 16:01 | XMS_ITS | Patient Health Record ---
Author Organization Krishna Arroyo MD Address [address] [place], [place] [address] Care Team Providers Care Database Designer Name Role Phone Krishna Arroyo Primary Care Provider Allergies Allergen (clinical drug ingredient) Drug/Non Drug Allergy documented on EMR Reaction Allergy Type Onset Date Status lisinopril Lisinopril cough Drug Allergy Activ e banana allergenic extract bananas (uncoded) GI Upset Allergy Active Results Component Value Reference Range Notes Complete Blood Count Auto Di ff Reviewed date:03/24/2024 05:28:08 PM Interpretation: Performing Lab:[facility], [address] [place] [phone] Notes/Report: White Blood Count 5.8 4.8-10.8 X10*3/uL [...] 0.0-0.2 /100WBC Neutrophils Absolute Auto 2.8 2.0-8.3 x10*3/uL Imm Gran Abs Auto 0.02 0.00-0.03 X10*3/uL Lymphocytes Absolute Auto 2.0 1.2-4.9 X10*3/uL Monocytes Absolute Auto 0.7 0.1-1.2 X10*3/uL Eosinophils Absolute Auto 0.2 0.0-0.4 X10*3/uL Basophils Absolute Auto 0.0 0.0-0.2 X10*3/uL NRBC Abs Auto 0.000 0.0-0.012 X10*3/uL Comprehensive [place]. Panel Fa st Reviewed date:03/23/2024 06:03:15 PM Interpretation: Performing Lab:[facility], [address] [place] [phone] Notes/Report: Sodium 141 135-145 mmol/L Potassium 4.6 [...] Panel Reviewed date:03/23/2024 05:58:49 PM Interpretation: Performing Lab:[facility], [address] [place] [phone] Notes/Report: Triglycerides 72 <150 mg/dL Desirable Triglyceride: [...] (Free>4and<10) Reviewed date:03/23/2024 05:59:27 PM Interpretation: Performing Lab:[facility], [address] [place] [phone] Notes/Report: PSA,Total (Free>4and<10) 0.69 0.00-4.00 ng/mL A [...] t Reviewed date:03/23/2024 06:13:29 PM Interpretation: Performing Lab:[facility], [address] [place] [phone] Notes/Report: [id number] Urine, Clean Catch Color Urine Yellow Appearance Urine Clear PH 5.5 5.0-9.0 Glucose Urine UA Negative Negative mg/dL Urine Blood Negative Negative Specific [place] - Urine 1.020 1.005-1.025 Urine Protein Negative Neg-Trace mg/dL Urine Ketones Negative Negative mg/dL Nitrite Urine Negative Negative Leukocyte Esterase Urine Negative Negative RBC Urine 0-2 0-2 /HPF WBC Urine 0-5 0-5 /HPF Squamous Epithelial Cell Urine 0-2 0-2 /HPF Bacteria Urine Trace None Seen Hyaline Casts Urine 0-2 0-2 /LPF Pathology Reviewed date:11/07/2024 02:51:04 PM Interpretation: Performing Lab:[facility], [address] [place] [phone] Notes/Report: ------ Name: Darinel Gomez Age/Sex: 74/M : 1950 Unit#: [id number] Attend Dr: Jabier Moon MD Re11/03/24 Status : [facility] Location: [facility] Disch: ------ SPEC : [id number] RECD : 11/03/24 STATUS: MISSY GUERRERO NUM: [id number] LASHANDA: 11/03/2445 [facility] DR: Jabier Moon MD ENTERED: 11/03/24-01 08 SP TYPE: Surgical OTHR DR: Krishna Aroryo MD ORDERED: HE Stain/3, Gross Micro L4 Diagnosis Colon, polyp at 20 c m, polypectomy: Tubular adenoma; negative for high-grade dysplasia. Clinical History Pre-Op Dx: Encounter for screening for malignant neoplasm of colon Post-Op Dx: Colon po lyp, diverticulosis, hemorrhoids Microscopic Description Microscopic sections reviewed. Material Received Colon polyp at 20 cm Gross Description Received in formalin labeled ?colon polyp at 20 cm? is a polypoid portion of red-pink soft tissue measuring 0.7 x 0.6 x 0.3 cm in greatest dimension. The outer surface is smooth and glistening. The unde rside is viera-white and unremarkable. The underside is inked blue. The specimen is bisected , wrapped in lens paper and entirely submitted for microscopic examination, 2 piece s in cassette A. ([facility]) IHC S/NG Disclaimer NOTE: Unless otherwi se stated, all tissue is formalin-fixed and paraffin-embedded. Some or all of the immunohistochemical tests reported herein may have been developed and their performance characteristics determined by [facility]. They have not been cleared or appr adolfo by the U.S. Food and Drug Administration (FDA). However, the FDA has determined that such clearance or approval is not necessary. This laboratory is certified under the Clinical Laboratory Improvement Amendments of 1988 (CLIA) as qualified to perform high comp lexity clinical laboratory testing. Copies To: Krishna Arroyo MD [facility] [address] [place], [place] [address] CONTINUED ON NEXT PAGE ------ Name: Darinel Gomez Phillip Age/Sex: 74/M : 1950 Unit#: [id number] Attend Dr: Jabier Moon MD Re11/03/24 Status : [facility] Location: [facility] Disch: ------ SPEC : [id number] RECD : 11/03/248 STATUS: MISSY GUERRERO NUM: [id number] LASHANDA: 11/03/2445 [facility] DR: Jabier Moon MD ENTERED: 11/03/24 SP TYPE: Surgical OTHR DR: Krishna Arroyo MD ORDERED: MELLISA Stain/3, Gross Micro L4 Copies To: (Continued) Jabier Moon MD [address] [place], [place] [id number] ------ Signed (signature on file) Glenys Lloyd MD 11/06/24 1647 ------ END OF REPORT Reason For Referral Reason perforated tympanic membrane [...] Referral Priority Routine Referral Appointment Date 05/23/2024 Medications Medication SIG (Take, Route, Frequency, Duration) [...] MG 1tablet Orally twice a day Active Ibuprofen 800 MG 1 tablet Orally Thre e times a day for 30 day(s) 02/16/2011 Not-Taking Aspirin 81 81 MG 1 tablet Orally Once a day Active Fluticasone Propionate 50 MCG/ACT 1 spray in each nostril Nasally Once a day for 30 day(s) 07/06/2022 Not-Taking oxyCODONE HCl 5 MG 1 tablet as needed Orally every 6 hrs as needed for 7 days 11/10/2022 Not-Taking valACYclovir HCl 1 GM 2 tablet Orally tw ice a day for 1 days 02/23/2023 Active Multi Vitamin - 1 tablet Orally Once a day Active Vitamin D 50 MCG (1999 UT) tablets Orall y Once a day Active Immunizations Vaccine Route Administration Date Status Comme nts Fluarix Quadrivalent IM Intramuscular 12/05/2013 Administe red PPSV23 (Pnemovax) IM Intramuscular 12/12/2013 Administered Shingles IM Intramuscular 12/26/2013 Administered Prevnar 13 IM Intramuscular 01/15/2014 Administered Fluarix Quadrivalent IM Intramuscular 12/04/2014 Administe red Fluarix Quadrivalent IM Intramuscular 12/09/2015 Administe red TDaP IM Intramuscular 12/12/2015 Administered Fluarix Quadrivalent IM [facility]cular [facility]/28[facility]ix Quadrivalent IM Intramuscular 12/09/2018 [facility] PPSV23 (Pnemovax) IM Intramuscular 12/13/2018 Administered Shingrix IM Intramuscular 05/05/2019 Administered pt was given the vaccine at [facility] in [place]. Shingles IM Intramuscular 09/04/2019 Administered Pt was given vaccine at [facility] in [place]. Influenza High Dose Unknown 12/17/[address] [facility] [employer] [facility] [employer] Covid Vaccine Unknown 05/27/2020 Administered Pfizer SARS-COV-2 Pfizer Unknown 05/04/2020 Administered SARS-COV-2 Pfizer Unknown 12/08/2020 Administered Influenza High Dose Unknown 12/18/2020 Administered Influenza High Dose IM Intramuscular 12/03/2022 Administer ed Influenza High Dose IM Intramuscular 11/22/2023 Administer ed Influenza High Dose IM Intramuscular 11/24/2024 Administer ed Flu Vaccine Unknown 12/05/2013 Pending Social History Tobacco Use: Social History Observation [...] Problem Status W/U Status Risk Notes Problem Atrial fibrillation (88504595) Atrial fibrillation (I48.91) Active confirmed Problem 48179786 Prostatism (N40.0) Active confirmed Problem 79683743 Essential hypertension (I10) Active confirmed Problem 7425732 Prediabetes (R73.09) Active confirmed Problem Obstructive sleep apnea (05031658) Obstructive sleep apnea (G47.33) Active confirmed Problem 109752918 Leukocytosis, unspecified type (D72.829) Active confirmed Problem Complex partial epileptic seizure (273009529) Complex partial seizure disorder (G40.209) Active confirmed Problem 26118951 Cervical spondylosis with myelopathy (M47.12) Active confirmed Problem 63902873 Lumbosacral spondylosis without myelopathy (M47.817) Active confirmed Problem 487546987 Follicular lymphoma, unspecified body region, unspecified follicular lymphoma type (C82.90) Active confirmed Problem 559550957 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) Active confirmed Problem 43984930 Aortic atherosclerosis (I70.0) Active confirmed Vital Signs Blood pressure diastolic 60 mm Hg 09/28/2024 yue ght is down 5 pounds since 05-22-24 Height 73 in 09/28/2024 weight is down 5 pounds since 05-22-24 Blood pressure systolic 132 mm Hg 09/28/2024 weig ht is down 5 pounds since 05-22-24 Weight 205 lbs 09/28/2024 weight is down 5 pounds since 05-22-24 BMI 27.04 kg/m2 09/28/2024 weight is down 5 pounds since 05-22-24 Encounters Encounter Location Date Provider Diagnosis Krishna Arroyo MD [address] [place] [address] [place] [id number] 03/23/2024 Krishna Arroyo Prediabetes R73.09 ; Essential hypertension I10 ; Prostatism N40.0 and Leukocytosis, unspecified type D72.829 Krishna Arroy[address] MD [address] [place] [id number] 11/24/2024 Krishna Arroyo Encounter for administration of vaccine Z23 Krishna Arroyo MD [address] [place] [id number] 03/30/2024 Krishna Arroyo Aortic atheroscleros is I70.0 ; Essential hypertension I10 ; Atrial fibrillation I48.91 ; Prediabetes R73.09 and Prostatism N40.0 Krishna Arroyo MD [address] [place] [id number] 05/22/2024 Krishna Arroyo Perforated tympanic membrane, bilateral H72.93 Krishna Arroyo MD [address] [place] [id number] 09/28/2024 Krishna Arroyo Atrial fibrillation I48.91 and Complex partial seizure disorder G40.209 Krishna Arroyo MD [address] [place] [id number] 12/21/2024 Krishna Arroyo Cold stress, initial encounter T69.9XXA Assessments Encounter Date Diagnosis (ICD Code) Assessment Notes Treatment Notes Treatment Clinical Notes Section Notes 03/23/2024 Prediabetes (ICD-10 - R73.09) 03/23/2024 Essential hypertension (ICD-10 - I10) 11/24/2024 Encounter for administration of vaccine (ICD-10 - Z23) 03/30/2024 Aortic atherosclerosis (ICD-10 - I70.0) discussed the need for statins. does not want to talke any further meds 03/30/2024 Essential hypertension (ICD-10 - I10) doing well on meds, will continue current regiment 05/22/2024 Perforated tympanic membrane, bilateral (ICD-10 - H72.93) will try to get him into ent 09/28/2024 Atrial fibrillation (ICD-10 - I48.91) had watchman procedure. no longer on anticoagulants 12/21/2024 Cold stress, initial encounter (ICD-10 - T69.9XXA) 03/23/2024 Prostatism (ICD-10 - N40.0) 03/30/2024 Atrial fibrillation (ICD-10 - I48.91) going to get watchman, 09/28/2024 Complex partial seizure disorder (ICD-10 - G40.209) doing well with meds and no seizures for over one year 03/23/2024 Leukocytosis, unspecified type (ICD-10 - D72.829) 03/30/2024 Prediabetes (ICD-10 - R73.09) stable, no need for medication at this time 03/30/2024 Prostatism (ICD-10 - N40.0) stable, will continue to monitor Plan Of Treatment Pending Test Test Name Order Date Electrocardiogram (EKG) 12/12/2015 Electrocardiogram (EKG) 01/01/2017 Electrocardiogram (EKG) 01/06/2018 Electrocardiogram (EKG) 01/19/2019 Next Appt Details Provider Name:Krishnadamien Best ier, 03/29/2025 07:30:00 AM, [address] [place] [address], [address], [phone], Provider Name:Krishnadamien Best ier, 04/05/2025 09:30:00 AM, [address] [place] [address], [place] [address], [place], [place], [phone], Insurance Providers Payer Name Payer Address Payer Phone Subscriber Number Group Number Insured Name Patient Relationship to Insured Coverage Start Date Coverage End Date [employer] [address] [place] [address] [id number] Darinel Gomez Self - patient is the insured [facility] [facility] [address] [place], [place] [id number] Darinel Gomez Self - patient is the insured Medical (General) History Medical History History ICD Code colonoscopy 06/2008; colonosc opy 01/31/[address] Moon - repeat 10 yrs.11/03/24 colonoscopy, no further required
--- OUTSIDE RECORDS SUMMARY | 2025-01-11 16:02 | XMS_ITS | Clinical Summary ---
Author Organization [facility] Address [address] [place] [phone] Phone Care Team Providers Care Head Porter Baggage Name Role Phone Krishna Arroyo MD Primary Care Provider Mo Reid MD Unavailable [phone] Allergies Active Allergy Reactions Criticality Noted Date Comments Banana Other (See Comments) 08/17/2005 Nausea Medications multivitamin (MVI) MVI (MULTIVITAMIN S); Dose: 1 TAB; Form: Not available; Route: PO; Frequency: QD; Directions: Not available; Details: Not available; Status: Active; Source: [facility] [place]; Date: 06/09/2002 06/09/2002 Active cholecalciferol (VITAMIN D3) 2,000 unit tablet Take 1 tablet (2,000 Units total) by mouth daily. 09/01/2018 Active metoprolol succinate (TOPROL-XL) 25 MG 24 hr tabletIndicatio ns:hypertension Take 25 mg by mouth daily. Indications: high blood pressure Active levETIRAcetam (KEPPRA) 750 MG tablet Take 750 mg by mouth. Active apixaban (ELIQUIS) 5 mg tablet Take 5 mg by mouth 2 (two) times a day. Active aspirin 81 mg Cap Take 81 mg by mouth. 04/05/2024 Active clopidogrel (PLAVIX) 75 mg tablet Take 75 mg by mouth daily. 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 Not on rebeca e 07/27/2022 Are you concerned about learning? Not on file 07/27/2022 No 07/27/2022 No 07/27/2022 Digital Access Answer Date Recorded No 08/09/2022 No 08/09/2022 Reliable internet access at home? Not on file 08/09/2022 Device with a working camera? Not on file Sex and Gender Information Value Date Recorded Sex Assigned at Not on file Legal Sex Male 6:39 PM EST Gender Identity Not on file Sexual Orientation Not on file Last Filed Vital Signs Vital Sign Reading Time Taken Comments Blood Pressure 152/76 11/21/2024 11:25 AM EDT Pulse 56 11/21/2024 11:25 AM EDT Temperature 36.3 C (97.3 F) 11/21/2024 11:25 AM EDT Respiratory Rate 20 05/16/2024 5:21 PM EST Oxygen Saturation 98% 11/21/2024 11: 25 AM EDT Inhaled Oxygen Concentration - - Weight 93.8 kg (206 lb 12.7 oz) 025 11:25 AM EDT Height 181.5 cm (5' 11.46 ) 11/21/2024 11:25 AM EDT Body Mass Index 28.47 11/21/2024 11:25 AM EDT Plan of Treatment Upcoming Encounters Date Type Department Care Team (Late st Contact Info) Description 11/20/2025 10:30 AM EDT Blood Draw Laboratory Services, [address], [address] [place] [address] Mo Reid MD [address] [place] [phone] [email or web address] 11/20/2025 11:30 AM EDT Office Visit [facility], Division of Hematologic Oncology, [address], [address] [place] [address] Mo Reid MD [address] [place] [phone] [email or web address] Health Maintenance Due Date Last Done Comments LIPID PANEL 1950 DEPRESSION SCREENING 1962 HEPATITIS C SCREENING 1968 COLOGUARD 10/04/1995 COLONOSCOPY 10/04/1995 COLORECTAL CANCER SCREENING 10/04/1995 FIT TEST 10/04/1995 FOBT 10/04/1995 SIGMOIDOSCOPY 10/04/1995 VIRTUAL COLONOSCOPY 10/04/1995 PNEUMOCOCCAL VACCINES (50+ years) (2 of 2 - PCV) 12/14/2019 12/13/2018 INFLUENZA VACCINE (#1) 2024 , 12/03/2022, 12/02/2021, Additional history exists COVID-19 VACCINE ( season) 2024 07/12/2024, 12/09/2023, 12/30/2022, Additional history exists CREATININE LEVEL 11/21/2025 11/21/2024, , 10/20/2022, Additional history exists Adult Td,Tdap Booster 12/11/2025 12/12/2015 ZOSTER VACCINES Completed 09/04/2019, 05/05/2019 RSV VACCINE Completed 12/30/2023 SMOKING STATUS SCREENING (Once After 26 Yrs) Completed 05/16/2024 HEPATITIS A VACCINES Aged Out No long er eligible based on patient's age to complete this topic HIB VACCINES Aged Out No longer eligi ble based on patient's age to complete this topic MENINGOCOCCAL VACCINES (ACWY) Aged Out No longer eligible based on patient's age to complete this topic MENINGOCOCCAL VACCINES (B) Aged Out N o longer eligible based on patient's age to complete this topic Medical Devices Not on file Procedures Procedure Name Priority Date/Time Associated Diagnosis Comments LFTS (HEPATIC PANEL) Routine 11/21/2024 11:16 AM EDT Follicular non-Hodgkin's lymphoma LDH Routine 11/21/2024 11:16 AM EDT Follicular non-Hodgkin's lymphoma CREATININE/EGFR Routine 11/21/2024 11:16 AM EDT Follicular non-Hodgkin's lymphoma HC BLOOD COUNT COMPLETE AUTO&AUTO DIFRNTL WBC Routine 11/21/2024 11:16 AM EDT Follicular non-Hodgkin's lymphoma from Last 3 Months Results * Creatinine/eGFR (11/21/2024 11:16 AM EDT) Pathologist [facility] CREATININE 1.17 0.50 - 1.20 mg/dL [facility] LIC# [id number] EGFR 65 >59 mL/min/1.7 3m2 [facility] LIC# [id number] Comment:Estimated glomerular filtration rate calculated using the CKD-EPI refit equation. Blood 11/21/2024 11:1 6 AM EDT 11/21/2024 11:22 AM EDT us Mo Reid MD LAB BLOOD ORDERABLES Final Result [facility] LIC# [id number] [address] [place] [address] * LDH (11/21/2024 11:16 AM EDT) LDH 186 135 - 225 U/L [facility] LIC# [id number] Blood 11/21/2024 11:1 6 AM EDT 11/21/2024 11:22 AM EDT us Mo Reid MD LAB BLOOD ORDERABLES Final Result Performing Organization Address [facility] Co de Phone Number [facility] LIC# [id number] [address] [place], [place] [address] * (ABNORMAL) LFTs (hepatic panel) (11/21/2024 11:16 AM EDT) TOTAL PROTEIN 6.4 6.4 - 8.3 g/dL [facility] LIC# [id number] ALBUMIN 4.3 3.5 - 5.2 g/dL [facility] LIC# [id number] GLOBULIN 2.1(L) 2.3 - 4.2 g/dL [facility] LIC# [id number] AST 20 <41 U/L [facility] LIC# [id number] ALT 22 <42 U/L [facility] LIC# [id number] ALKALINE PHOSPHATASE 71 40 - 129 U/L [facility] LIC# [id number] TOTAL BILIRUBIN 0.8 0.2 - 1.2 mg/dL [facility] LIC# [id number] DIRECT BILIRUBIN 0.3 0.0 - 0.3 mg/dL [facility] LIC# [id number] Blood 11/21/2024 11:1 6 AM EDT 11/21/2024 11:22 AM EDT us Mo Reid MD LAB BLOOD ORDERABLES Final Result Performing Organization Address [facility] Co de Phone Number [facility] LIC# [id number] [address] [place] [address] * (ABNORMAL) CBC and differential (11/21/2024 11:16 AM EDT) WBC 6.58 4.00 - 10.00 K/uL [facility] LIC# [id number] RBC 4.75 4.50 - 6.40 M/uL [facility] LIC# [id number] HGB 14.6 13.5 - 18.0 g/dL [facility] LIC# [id number] HCT 42.6 40.0 - 54.0 % [facility] LIC# [id number] PLT 163 150 - 450 K/uL [facility] LIC# [id number] MCV 89.7 80.0 - 100.0 fL [facility] LIC# [id number] MCH 30.7 27.0 - 32.0 pg [facility] LIC# [id number] MCHC 34.3 32.0 - 36.0 g/dL [facility] LIC# [id number] RDW 12.4 11.5 - 14.5 % [facility] LIC# [id number] MPV 10.1 8.4 - 12.0 fL [facility] LIC# [id number] NRBC 0.00 0 /100 WBCs [facility] LIC# [id number] ABSOLUTE NRBC 0.00 0 K/uL [facility] LIC# [id number] DIFF [employer] [facility] LIC# [id number] NEUTS 47.9(L) 48.0 - 76.0 % [facility] LIC# [id number] LYMPHS 36.3 18.0 - 41.0 % [facility] LIC# [id number] MONOS 11.4(H) 4.0 - 11.0 % [facility] LIC# [id number] EOS 3.3 0.0 - 5.0 % [facility] LIC# [id number] BASOS 0.8 0.0 - 1.5 % [facility] LIC# [id number] % IMMATURE GRANS 0.3 0.0 - 1.0 % [facility] LIC# [id number] ABSOLUTE NEUTS 3.15 1.92 - 7.60 K/uL [facility] LIC# [id number] ABSOLUTE LYMPHS 2.39 0.72 - 4.10 K/uL [facility] LIC# [id number] ABSOLUTE MONOS 0.75 0.16 - 1.10 K/uL [facility] LIC# [id number] ABSOLUTE EOS 0.22 0.00 - 0.50 K/uL [facility] LIC# [id number] ABSOLUTE BASOS 0.05 0.00 - 0.15 K/uL [facility] LIC# [id number] ABS IMMATURE GRANS 0.02 0.00 - 0.10 K/uL [facility] LIC# [id number] Blood 11/21/2024 11:1 6 AM EDT 11/21/2024 11:22 AM EDT us Mo Reid MD LAB BLOOD ORDERABLES Final Result [facility] LIC# [id number] [address] [place] [address] from Last 3 Months Insurance [employer] MEDEX SUPPLEMENT MEDICARE PART A & B [employer] MEDEX SUPPLEMENT MEDICARE PART A & B [employer] MEDEX SUPPLEMENT MEDICARE PART A & B Member Subscriber Plan / Payer ( fective 2015-Present) Name:Deborah Marcelo Member ID:[id number] Relation to Subscriber:Self Name:Deborah Marcelo Subscriber ID:[id number] Payer ID:[id number] Group ID:Not on file Type:Medicare Address: [employer] [address] [facility] MEDEX SUPPLEMENT MEDICARE PART A & B [employer] MEDEX SUPPLEMENT MEDICARE PART A & B [employer] MEDEX SUPPLEMENT MEDICARE PART A & B [employer] MEDEX SUPPLEMENT MEDICARE PART A & B [employer] MEDEX SUPPLEMENT MEDICARE PART A & B [facility] MEDEX SUPPLEMENT MEDICARE PART A & B Care Teams Head Porter Baggage Relationship Specialty Start Date End Date Krishna Arroyo MD [address] [place] [address] [place] [address] PCP - General 07/20/14 Mo Reid MD [address] [place] [address] [email or web address] LMR Provider 07/26/14 Additional Source Comments The information contained in this document represents components of the legal health record. It is not the complete legal health record.[facility]
--- OUTSIDE RECORDS SUMMARY | 2025-01-11 16:02 | XMS_ITS | Patient Health Record ---
Author Organization [facility] Address [address] [place] [address] Care Team Providers Care Sports Psychologist Name Role Phone Krishna Arroyo MD Primary Care Provider Jabier Johnson [phone] Allergies Allergen (clinical drug ingredient) Drug/Non Drug Allergy documented on EMR Reaction Allergy Type Onset Date Status lisinopril Lisinopril cough Drug Allergy Activ e Results Component Value Reference Range Notes Pathology (Not yet reviewed by provider) Interpretation: Performing Lab:[facility], [address] [place] [id number] Notes/Report: Reason For Referral No Information Medications Medication SIG (Take, Route, Frequency, Duration) Notes Start Date End Date Status Metoprolol Succinate ER 25 MG Oral; Duration: 90 Active lamoTRIgine 100 MG TAKE 1 TABLET TWICE A DAY Oral; Duration: 90 Active levETIRAcetam 750 MG Oral; Duration: 90 Active Aspirin 81 81 MG 1 tablet Orally Once a day; Duration: 30 day(s) 04/27/2024 Active Plavix 75 MG 1 tablet Orally Once a day; Duration: 30 day(s) 04/27/2024 Active Multi Vitamin/Minerals Orally Active Vitamin D3 2000 UNIT Orally Active Problems Problem Type SNOMED Code ICD Code Onset Dates Problem Status W/U Status Risk Notes Problem Colon cancer screening (760212610) Colon cancer screening (Z12.11) Active confirmed Problem Long-term current use of anticoagulant (331481143) Current use of shelter anticoagulation (Z79.01) Active confirmed Vital Signs Blood pressure diastolic 00 mm Hg 01/18/2024 Height 72 in 01/18/2024 Blood pressure systolic 00 mm Hg 01/18/2024 Weight 205 lbs 01/18/2024 BMI 27.80 kg/m2 01/18/2024 Encounters Encounter Location Date Provider Diagnosis [facility] [address] [address] [place], [place] [id number] 11/03/2024 Jabier Moon [facility] [address] [place] [id number] 01/18/2024 Jabier Moon Colon cancer screeni ng Z12.11 and Current use of shelter anticoagulation Z79.01 [facility] [address] [place] [address] 04/27/2024 Jabier Moon Assessments Encounter Date Diagnosis (ICD Code) Assessment Notes Treatment Notes Treatment Clinical Notes Section Notes 01/18/2024 Colon cancer screening (ICD-10 - Z12.11) Stop the Eliquis for three days before the colonoscopy Overall, Deborah appears quite well. Given his age, excellent clinical appearance, and last colonoscopy being 10 years ago, I did recommend a followup colonoscopy for further screening purposes. We did review the rationale for this in regard to colon cancer prevention. Full consent was obtained for this, including risks of bleeding and perforation. The procedure will be done with monitored anesthesia care. He was given the below instructions regarding adjustment of his medications for the procedure. Deborah was comfortable with this plan. Thank you again for allowing me to participate in Deborah's care. I shall continue to keep you advised of his progress. 01/18/2024 Current use of local company [employer] truck [employer] anticoagulation (ICD-10 - Z79.01) Overall, Deborah appears quite well. Given his age, excellent clinical appearance, and last colonoscopy being 10 years ago, I did recommend a followup colonoscopy for further screening purposes. We did review the rationale for this in regard to colon cancer prevention. Full consent was obtained for this, including risks of bleeding and perforation. The procedure will be done with monitored anesthesia care. He was given the below instructions regarding adjustment of his medications for the procedure. Deborah was comfortable with this plan. Thank you again for allowing me to participate in Deborah's care. I shall continue to keep you advised of his progress. Plan Of Treatment Pending Test Test Name Order Date Pathology 11/03/2024 Future Test Test Name Order Date COLONOSCOPY 11/30/2013 COLONOSCOPY 01/18/2024 Insurance Providers Payer Name Payer Address Payer Phone Subscriber Number Group Number Insured Name Patient Relationship to Insured Coverage Start Date Coverage End Date MEDICARE OF [place] [address] [place] [address] [id number] DEBORAH MARCELO Self - patient is the insured [employer] CLAIM[employer] [address] [place] [phone] [id number] DEBORAH MARCELO Self - patient is the insured Medical (General) History Medical History History ICD Code Negative colonoscopies in and 06-27-2008, except for int/ext hemorrhoids, hyperplastic polyps, sigmoid diiverticulosis Denies HI,DM,CVA,Lung disease,renal dise ase Non-Hodgkin's Lymphoma follo wed at [facility]-diagnosed in 2000--has never been treated Hypertension Sleep apnea- cpap machine Atrial fibrillation-Dr. Farias Complex partial seizure - Dr. Cantu She en at [facility] Negative colonoscopy in 01/2014 Surgical History Surgery Date(Month/Year) Neurosurgery for partial sim ple seizures--had a lesion in the right temporal lobe that was resected Tonsillectomy Hand surgery Carpal tunnel /bilateral
== END 2025-01-11 13:40 | disposition home or self-care (01) ==
LOC: HO.HCS 13:08
PROVIDERS: PCP Internal Medicine; Visit Provider Internal Medicine
DX: I48.0 Paroxysmal atrial fibrillation (principal); I10 Essential (primary) hypertension; G47.33 Obstructive sleep apnea (adult) (pediatric); G40.209 Localization-related (focal) (partial) symptomatic epilepsy and epileptic syndromes with complex partial seizures, not intractable, without status epilepticus
CPT/HCPCS: 93010; 99214; G2211

== ENCOUNTER → 2025-01-11 13:07 | Outpatient (BNVA) | payer MEDICARE, SELFPAY | PROVIDERS: PCP Internal Medicine; Visit Provider Internal Medicine | DX: I48.0 Paroxysmal atrial fibrillation (principal); G47.33 Obstructive sleep apnea (adult) (pediatric); Z99.89 Dependence on other enabling machines and devices; I10 Essential (primary) hypertension; G40.209 Localization-related (focal) (partial) symptomatic epilepsy and epileptic syndromes with complex partial seizures, not intractable, without status epilepticus; Z79.82 Long term (current) use of aspirin | CPT/HCPCS: 93005; 99212 ==